=== PATIENT | male | born 1980 | race Caucasian/White ===

== ENCOUNTER 2024-04-11 07:56 | Outpatient (AMB) | payer OTHER, SELFPAY ==
[2024-04-11 07:58] VITALS: BP 128/82; PULSE 92; O2SAT 97; BMI 31.3
--- NOTE | 2024-04-11 07:58 | MHC.PC.OV ---
Vital Signs 04/11/24 07:58 Height 5 ft 7 in Weight 200 lb BMI 31.3 BP 128/82 Blood Pressure Location Lt brachial Position Sitting Pulse 92 Pulse Source Pulse Oximeter Pulse Oximetry (%) 97 Oxygen Delivery Method Room Air Intake Visit Reasons: Annual PE Allergies No Known Allergies Allergy (Verified 04/11/24 08:04) Medication List - Last Reconciled 04/11/24 by Asher Chacon PA-C alprazolam 0.5 mg PO DAILY PRN 2 days blood pressure test kit-large As directed bupropion HCl XL (Wellbutrin XL) 300 mg PO QAM 90 days clonidine HCl 0.1 mg PO BID ibuprofen 800 mg PO Q8H 90 days omeprazole 20 mg PO DAILY valacyclovir (Valtrex) 1,000 mg PO DAILY 30 days Tobacco use date assessed: 04/11/24 Dental Screening Dental Screen Date: 04/11/24 Did you have a dental visit in the last 12 months?: Yes Did you have a dental problem in the last 6 months where you did not have access to dental care?: No Was dental information given to patient?: Patient has dentist HPI Annual PE HPI Details Patient is a 43-year-old male here today for routine annual physical. Patient has a past medical history significant for generalized anxiety disorder, obesity,, GERD. .. Anxiety: Anxiety seems to be well controlled on current med regime. Anxiety was bad during COVID pandemic. .. .. Hyperlipidemia: Patient's most recent lipid panel showing elevated total cholesterol. Recheck lipid panel if LDL above 190 will consider statin therapy .. .. Obesity:? Patient does understand his BMI is over 30 and will work on better eating habits and being more physically active to reduce his weight VAccine: UTD with Maderna Vaccine?, up-to-date with tetanus. , UTD with Flu vaccine. [facility] Medical History (Updated 04/11/24 @ 08:24 by Asher Chacon PA-C) Herpes simplex Overweight GERD (gastroesophageal reflux disease) Family History (Updated 04/11/24 @ 08:09 by Asher Chacon PA-C) Father COPD (chronic obstructive pulmonary disease) HTN (hypertension) Mother Cancer Diabetes Breast cancer, Onset Age: 51 Social History (Updated 04/11/24 @ 08:09 by Asher Chacon PA-C) Housing: House Alcohol intake: current Alcohol intake frequency: a few times a month Alcohol type: beer Patient Tobacco Use Status: Never used Tobacco Tobacco use type: Cigarette e-Cigarette/Vaping Use: Never Used Second Hand Smoke Exposure: No Substance Use Type: Marijuana Current occupational status: employed Current occupation: [employer] Cognitive needs: No Hearing needs: No Vision needs: Yes Questionnaire PHQ-9 Over the last 2 weeks, how often have you been bothered by any of the following problems? 1. Little interest or pleasure in doing things: not at all 2. Feeling down, depressed, or hopeless: several days 3. Trouble falling or staying asleep, or sleeping too much: not at all 4. Feeling tired or having little energy: not at all 5. Poor appetite or overeating: several days 6. Feeling bad about yourself - or that you are a failure or have let yourself or your family down: not at all 7. Trouble concentrating on things, such as reading the newspaper or watching television: not at all 8. Moving or speaking so slowly that other people could have noticed. Or the opposite - being so fidgety or restless that you have been moving around a lot more than usual: not at all 9. Thoughts that you would be better off or of hurting yourself in some way: not at all Total score: 2 Depression Screening Interpretation: Positive Depression Screening Follow-up: Existing condition Depression Screening Done: Yes 15795 - PHQ-9 Billing: Yes Source: Developed by Drs. Elgin Orlando, Binta Peng, Moise Bustamante and colleagues, with an educational luigi from [employer]. Thrive Questionnaire Date Thrive assessed: 04/09/24 I am a: Patient What is your living situation today?: I have a steady place to live Within the past 12 months, did the food you bought not last and you didn't have the money to get more?: Never true Within the past 12 months, did you worry whether your food would run out before you got money to buy more?: Never true Do you have trouble paying for medicines?: No Do you have trouble getting transportation to medical appointments?: No Do you have trouble paying your heating and electricity bill?: No Do you have trouble taking care of your child, family member or friend?: No Do you have trouble with day-to-day activities such as bathing, preparing meals, shopping, managing finances, etc.?: No Are you currently unemployed and looking for a job?: No Are you interested in more education?: No Please select the resources that you would like help with: None Currently or been in a relationship where the following occur: No concerns reported THRIVE Score: 0 AUDIT C Alcohol Use Questionnaire (AUDIT-C) 1. How often do you have a drink containing alcohol?: 2-3 times a week 2. How many drinks containing alcohol do you have on a typical day when you are drinking?: 3 or 4 3. How often do you have six or more drinks on one occasion?: Less than monthly Total Score: 5 TING-7 AMB Questionnaire TING-7 Date TING - 7 assessed: 04/11/24 Feeling nervous, anxious, or on edge: 1 = Several days Not being able to stop or control worryin = Several days Worrying too much about different things: 1 = Several days Trouble relaxin = Several days Being so restless that it is hard to sit still: 1 = Several days Becoming easily annoyed or irritable: 1 = Several days Feeling afraid as if something awful might happen: 1 = Several days Total TING-7 score (0-4 normal; 5-9 mild; 10-14 moderate; 15-21 severe): 7 Source: Developed by Drs. Elgin Orlando, Binta Peng, Moise Bustamante and colleagues, with an educational luigi from [employer]. TING-7 Assessment Billing TING-7 Assessment Tool: TING-7 Assessment 27088 Review of Systems Const Denies body aches, Denies chills, Denies excessive sweating, Denies fatigue, Denies fever(s) and Denies headache(s) Eyes Denies blurry vision ENT Denies dysphagia, Denies vertigo, Denies dizziness, Denies headache(s), Denies hearing loss and Denies tinnitus Card Denies chest pain, Denies chest pain with activity, Denies syncope, Denies irregular heart rhythm and Denies dyspnea Resp Denies chest congestion, Denies cough, Denies hemoptysis, Denies dyspnea and Denies wheezing GI Denies abdominal pain, Denies melena, Denies hematochezia, Denies coffee ground emesis, Denies dysphagia, Denies diarrhea, Denies nausea and Denies vomiting Denies difficulty urinating, Denies dysuria, Denies urinary frequency, Denies urinary hesitancy and Denies urinary urgency Musc Denies arthralgias, Denies limited range of motion, Denies muscle cramps and Denies muscle weakness Skin/Breast Denies rash and Denies skin ulcer Neuro Denies Abnormal speech present, Denies confusion, Denies vertigo, Denies dizziness, Denies syncope, Denies headache(s), Denies memory loss and Denies seizure-like activity Psych Denies anxiety, Denies confusion, Denies depression, Denies memory loss, Denies panic attacks and Denies paranoia Endo Denies excessive sweating, Denies fatigue, Denies flushing, Denies polydipsia and Denies polyuria Aller/Immun Denies wheezing Physical exam (Primary Care) Vital Signs: Last Vital Signs Pulse 92 04/11/24 07:58 BP 128/82 04/11/24 07:58 Pulse Ox 97 04/11/24 07:58 Oxygen Delivery Method Room Air 04/11/24 07:58 BMI result Body Mass Index 31.3 Tobacco/Smoking Status: Tobacco use Status Tobacco use date assessed 04/11/24 04/11/24 08:02 Patient Tobacco Use Status Never used Tobacco 04/11/24 08:09 Tobacco use type Cigarette 04/11/24 08:09 e-Cigarette/Vaping Use Never Used 04/11/24 08:09 PHQ-9: PHQ-9 Score PHQ-9: Total score 2 04/11/24 08:23 Depression Screening Interpretation: Positive Depression Screening Follow-up: Existing condition Thrive Assessment: Date of Thrive Assessment Date Thrive assessed 04/09/24 04/11/24 08:02 Currently or been in a relationship where the following occur: No concerns reported Const General: cooperative, comfortable, no acute distress, alert and awake; No confusion Orientation/consciousness: oriented to person, oriented to place, patient oriented x3 and No confusion HENMT Head: Yes normocephalic Ears: external ears normal and TM's normal bilaterally Face and sinus: No sinus tenderness Mouth: Normal oral and palatal mucosa present and tongue normal Teeth and gingiva: dentition normal and gingiva normal Throat: Yes posterior oropharynx normal, Yes tonsils normal and Yes uvula midline Eyes Conjunctivae: conjunctivae normal Sclerae: sclerae normal Pupils: Equal, round and reactive pupils present EOM: EOMs intact bilaterally Direct Ophthalmoscopy: No no photophobia Neck Neck: Yes no lymphadenopathy, No tender and Yes no JVD Thyroid: Thyroid normal Carotids: no bruits Chest Chest palpation & inspection: no tenderness Resp Effort & Inspection: normal respiratory effort, no audible wheezes, not labored and no stridor Auscultation: no crackles, no rales, no rhonchi and no wheezes Cardio Jugular venous distension: no JVD Rate: regular rate, not bradycardic and not tachycardic Rhythm: regular rhythm Bruits: no carotid bruits Peripheral pulses: Peripheral pulses 2+ throughout GI Inspection: Yes normal to inspection, No abdominal wall ecchymosis and No visible herniation Palpation (GI): Soft to palpation, nontender, no guarding, not rigid and No hepatosplenomegaly present Auscultation: normoactive bowel sounds General: Yes no CVA tenderness Back/Spine/Pelvis Back: no CVA tenderness and No back tenderness Cervical Spine: cervical ROM normal Thoracic/Lumbar Spine: thoracic and lumbar spine normal to inspection, straight leg raise negative bilaterally, No thoraco-lumbar ROM limited and No lumbar spinal tenderness Skin Lesions: no lesions Rashes: no rashes Wounds: no wounds Neuro General: oriented to person, oriented to place, patient oriented x3, CN's II-XI intact bilaterally and No confusion Cranial nerves: Yes Equal, round and reactive pupils present and Yes Normal accommodation reflex present Cognition (Neuro): normal cognition Speech: No Abnormal speech present Gait exam (Neuro): Normal gait present Motor exam (neuro): 5/5 motor strength present throughout Extrem Right upper extremity: full ROM; no cyanosis Left upper extremity: full ROM; no cyanosis Right lower extremity: no edema Left lower extremity: no edema Psych Appearance: grossly normal Mental Status: mental status grossly normal Affect: normal affect Attitude: cooperative Thought process: Normal thought process present Immunizations Boostrix Tdap 2.5 Lf unit-8 mcg-5 Lf/0.5 mL intramuscular syringe Performing Provider: Asher Chacon PA-C Performing Location: [facility] Administered by: KURT Dennis on 04/11/24 08:23 Dose Route Admin Location Dispensed Lot Number Expiration Date NDC Technical Support Representative 0.5 mL IM Left Deltoid 0.5 mL [id number] 04/23/26 [id number] [place] VIS Given Date VIS Provided VIS Publication Date 04/11/24 Single Vaccine 21 Eligibility Eligibility Date Funding Source Not VFC Eligible 04/11/24 Private Assessment and Plan Assessment & Plan (1) Annual physical exam: Code(s): Z00.00 - Encounter for general adult medical examination without abnormal findings (2) TING (generalized anxiety disorder): Code(s): F41.1 - Generalized anxiety disorder Plan: Patient's TING-7 score positive for mild anxiety which has been existing condition for him. He continues on Wellbutrin with good effect. His anxiety has been much better since COVID pandemic has calm down. (3) Obese: Code(s): E66.9 - Obesity, unspecified Qualifiers: Body mass index: BMI 32.0-32.9 Obesity classification: adult class 1 (BMI 30 - 34.9) Obesity type: due to excess calories Serious obesity comorbidity presence: without serious comorbidity Qualified Code(s): E66.09 - Other obesity due to excess calories; Z68.32 - Body mass index [BMI] 32.0-32.9, adult Plan: Patient does understand his BMI is over 30 and has been working on better eating habits and being more physically active to reduce his weight. (4) Screening for diabetes mellitus (DM): Code(s): Z13.1 - Encounter for screening for diabetes mellitus (5) HTN (hypertension): Code(s): I10 - Essential (primary) hypertension Qualifiers: Hypertension type: primary hypertension Qualified Code(s): I10 - Essential (primary) hypertension Plan: Blood pressure acceptable today in office. Likely a white coat hypertension due to his anxiety. Blood pressure today acceptable. He will continue on lifestyle modifications to control his blood pressure. Goal blood pressures to be below 140/90 (6) HLD (hyperlipidemia): Code(s): E78.5 - Hyperlipidemia, unspecified Qualifiers: Hyperlipidemia type: mixed hyperlipidemia Qualified Code(s): E78.2 - Mixed hyperlipidemia Plan: Most recent lipid panel showing elevated total cholesterol. Will recheck fasting labs in if LDL above 190 will consider statin therapy. Orders: Orders Comprehensive [place]. Panel Fast 04/11/24 I10 - Essential (primary) hypertension Complete Blood Count no Diff 04/11/24 I10 - Essential (primary) hypertension Lipid Panel 04/11/24 E78.2 - Mixed hyperlipidemia TDaP Immunization 04/11/24 Z23 - Encounter for immunization Microalbumin, Random (w Creat) 04/11/24 I10 - Essential (primary) hypertension Patient Instructions: Goal: Blood pressure to remain below 140/90, LDL to be below 190 Barriers:: Adherence to physical activity and healthy eating habits Coding Level of Care Code Est Pt Prev Care 40-64y(09412) Diagnoses Annual physical exam Z00.00 TING (generalized anxiety disorder) F41.1 Class 1 obesity due to excess calories without serious comorbidity with body mass index (BMI) of 32.0 to 32.9 in adult E66.09; Z68.32 Body mass index: BMI 32.0-32.9 Obesity classification: adult class 1 (BMI 30 - 34.9) Obesity type: due to excess calories Serious obesity comorbidity presence: without serious comorbidity Screening for diabetes mellitus (DM) Z13.1 Primary hypertension I10 Hypertension type: primary hypertension Mixed hyperlipidemia E78.2 Hyperlipidemia type: mixed hyperlipidemia Additional Codes TING-7 Assessment Billing - TING-7 Assessment Tool: TING-7 Assessment 17317 ([id number])
== END 2024-04-11 08:20 | disposition home or self-care (01) ==
PROVIDERS: PCP Physician Assistant; Visit Provider Physician Assistant
DX: Z23 Encounter for immunization (principal)
CPT/HCPCS: 90471; 90715; 99396

== ENCOUNTER 2024-05-22 21:38 | Emergency (ER) | payer OTHER, SELFPAY ==
--- NOTE | ~2024-05-22 | XR_ITS ---
EXAMINATION: XR CHEST, 2 VIEWS CLINICAL INFORMATION: Persistent cough COMPARISON: None. TECHNIQUE: PA and lateral views of the chest were obtained. FINDINGS: Patchy airspace opacities are suspected at the right lung base just posterior to the right hemidiaphragm, best seen on lateral view. Mild elevation of the right hemidiaphragm. Left lung is clear. Cardiac and mediastinal contours are normal. Pulmonary vasculature is unremarkable. Trachea is midline. Osseous structures are unremarkable. XR/XR chest 2V IMPRESSION: Right basilar airspace opacities which are concerning for pneumonia. Platelike atelectasis is also possible. Electronically signed by: Chandler Zamorano MD 05/22/2024 11:46 PM EDT
[2024-05-22 21:52] VITALS: BP 152/99; PULSE 128; RESP 20; TEMP 37.8; O2SAT 95; BMI 30.5
[2024-05-22] MEDS: Acetaminophen 325 MG TABLET 975 MG PO (22:04)
[2024-05-22 22:36] LABS: IDNOW Serial# 6674DD1D; Strep A Nucleic Acid Negative (Negative)
[2024-05-22 22:52] LABS: Influenza A PCR NEGATIVE (Negative); Influenza B PCR NEGATIVE (Negative); Resp Syncy Virus RNA Qual PCR NEGATIVE (Negative); SARS COV2 PCR INHOUSE NEGATIVE (Negative)
--- NOTE | 2024-05-23 02:42 | ED_ITS ---
HPI - URI/Sore Throat General Chief Complaint: Upper Respiratory Symptoms Stated Complaint: fever x5 days Time Seen by Provider: 05/23/24 02:27 Source: patient Mode of arrival: ambulatory Limitations: no limitations History of Present Illness ED Provider: cas ZAVALA Narrative: Patient was healthy been congested for last 4 days with cough fever cough is mostly dry specially when he takes a deep breath had a T-max of 103 degrees no other family member sick Related Data Home Medications ?Medication ?Instructions ?Recorded ?Confirmed clonidine HCl 0.1 mg tablet 0.1 mg PO BID 08/26/20 04/11/24 omeprazole 20 mg capsule,delayed 20 mg PO DAILY 08/26/20 04/11/24 release Previous Rx's ?Medication ?Instructions ?Recorded blood pressure test kit-large #1 ea 10/09/21 bupropion HCl 300 mg 24 hr tablet, 300 mg PO QAM 90 days #90 tabs 04/07/23 extended release (Wellbutrin XL) alprazolam 0.5 mg tablet 0.5 mg PO DAILY PRN anxiety 2 days 02/10/24 #2 tabs ibuprofen 800 mg tablet 800 mg PO Q8H 90 days #270 tabs 02/10/24 valacyclovir 1 gram tablet 1,000 mg PO DAILY 30 days #30 tabs 05/01/24 (Valtrex) albuterol sulfate 90 mcg/actuation 2 puff inhalation Q6H PRN 05/23/24 aerosol inhaler shortness of breath or wheezing #8.5 grams benzonatate 200 mg capsule 200 mg PO TID PRN cough #30 caps 05/23/24 cefuroxime axetil 500 mg tablet 500 mg PO BID 7 days #14 tabs 05/23/24 Allergies Allergy/AdvReac Type Severity Reaction Status Date / Time No Known Allergies Allergy Verified 05/22/24 21:55 Review of Systems Review of Systems: Yes all other systems are reviewed and are negative PMF Past Medical History Medical History Herpes simplex Overweight GERD (gastroesophageal reflux disease) Family History Family History Father COPD (chronic obstructive pulmonary disease) HTN (hypertension) Mother Cancer Diabetes Breast cancer, Onset Age: 51 Social History Social History Housing: House Alcohol intake: current Alcohol intake frequency: a few times a month Alcohol type: beer Patient Tobacco Use Status: Never used Tobacco Tobacco use type: Cigarette e-Cigarette/Vaping Use: Never Used Second Hand Smoke Exposure: No Substance Use Type: Marijuana Advance Directives: No Advance Directives Information Provided: Yes Do you have a plan to hurt others: No Plan Current occupational status: employed Current occupation: [employer] Cognitive needs: No Hearing needs: No Vision needs: Yes Physical Exam Vital Signs: Vital Signs: Last Vital Signs Temp 99.2 F 05/23/24 04:38 Pulse 100 05/23/24 04:38 Resp 18 05/23/24 04:38 BP 134/81 05/23/24 04:38 Pulse Ox 97 05/23/24 04:38 O2 Del Method Room Air 05/23/24 04:38 BMI result Body Mass Index 30.5 Appearance: Alert. Oriented X3. No acute distress. ENT: Pharynx normal. Oral Mucosa moist Neck: Normal inspection. Neck supple. CVS: Normal heart rate and rhythm. Pulses normal. Respiratory: No respiratory distress. Equal air entry bilateral, prolonged expiration with frequent cough Abdomen: Soft and nontender. Bowel sounds are present, no mass palpable, no CVA tenderness Skin: Skin warm and dry. Normal skin color. Normal skin turgor. Extremities: No lower extremity edema. No calf tenderness Neuro: Oriented X 3. Medications Administered Discontinued Medications Generic Name Dose Route Start Last Admin Trade Name Freq PRN Reason Stop Dose Admin Acetaminophen 975 mg 05/22/24 22:01 05/22/24 22:04 Acetaminophen 325 Mg Tablet PO 05/22/24 22:02 975 mg ONCE ONE Administration Albuterol Sulfate 2 puff 05/23/24 02:49 05/23/24 03:46 Albuterol Sulfate 90 Mcg 8 Gm Inhaler INHALE 05/23/24 02:50 2 puff ONCE ONE Administration Cefuroxime Axetil 500 mg 05/23/24 02:47 05/23/24 03:04 Cefuroxime Axetil 500 Mg Tablet PO 05/23/24 02:48 500 mg ONCE ONE Administration Guaifenesin/Codeine Phosphate 10 ml 05/23/24 02:48 05/23/24 03:04 Guaifen/Codeine Sf 200/20/10ml 10 Ml Liquid PO 05/23/24 02:49 10 ml ONCE ONE Administration Medical Decision Making Medical Decision Making [facility] Narrative: Patient has acute bronchitis will prescribe cefuroxime and inhaler Differential Diagnosis Differential Diagnoses: The differential diagnosis associated with the presentation includes Lab Data [facility] Lab Attestation statement: I reviewed the patient's lab results. Labs: Lab Results 05/22/24 05/22/24 Range/Units 22:10 22:20 Influenza Type A (PCR) NEGATIVE (Negative) Influenza Type B (PCR) NEGATIVE (Negative) RSV RNA Qual (PCR) NEGATIVE (Negative) SARS-CoV-2 RNA (RT-PCR) NEGATIVE (Negative) S. pyogenes GrpA ROBBIN Negative (Negative) Independent Interpretation I performed an independent interpretation of an: Plain X-Ray Radiology Impression Discussion of test interpretation with radiology: I have reviewed the radiologist's reading. Radiologist Impression: [place] [id number] XRay Report Signed Patient: Rolan Chakraborty MR#: [id number] : 1980 Acct:[id number] Age/Sex: 43 / M ADM Date: 05/22/24 Loc: .ED Attending Dr: Ordering Physician: Generic ED Physician Date of Service: 05/22/24 Procedure(s): XR chest 2V Accession Number(s): [id number] cc: Asher Chacon PA-C; Generic ED Physician~ EXAMINATION: XR CHEST, 2 VIEWS CLINICAL INFORMATION: Persistent cough COMPARISON: None. TECHNIQUE: PA and lateral views of the chest were obtained. FINDINGS: Patchy airspace opacities are suspected at the right lung base just posterior to the right hemidiaphragm, best seen on lateral view. Mild elevation of the right hemidiaphragm. Left lung is clear. Cardiac and mediastinal contours are normal. Pulmonary vasculature is unremarkable. Trachea is midline. Osseous structures are unremarkable. XR/XR chest 2V IMPRESSION: Right basilar airspace opacities which are concerning for pneumonia. Platelike atelectasis is also possible. Electronically signed by: Chandler Zamorano MD 05/22/2024 11:46 PM EDT Discharge Plan Discharge Clinical Impression: Bronchitis Patient Disposition: Home, Self-Care Instructions: Acute Bronchitis (ED) Additional Instructions: Take antibiotic as prescribed Use albuterol inhaler 2 puffs every 4-6 hours as needed Antibiotic and cough drops as prescribed Prescriptions: New benzonatate 200 mg capsule 200 mg PO TID PRN (Reason: cough) Qty: 30 0RF cefuroxime axetil 500 mg tablet 500 mg PO BID 7 Days Qty: 14 0RF albuterol sulfate 90 mcg/actuation HFA aerosol inhaler 2 puff inhalation Q6H PRN (Reason: shortness of breath or wheezing) Qty: 8.5 0RF No Action bupropion HCl [Wellbutrin XL] 300 mg tablet extended release 24 hr 300 mg PO QAM 90 Days Qty: 90 2RF ibuprofen 800 mg tablet 800 mg PO Q8H 90 Days Qty: 270 0RF alprazolam 0.5 mg tablet 0.5 mg PO DAILY PRN (Reason: anxiety) 2 Days Qty: 2 0RF valacyclovir [Valtrex] 1 gram tablet 1,000 mg PO DAILY 30 Days Qty: 30 1RF omeprazole 20 mg capsule,delayed release(DR/EC) 20 mg PO DAILY clonidine HCl 0.1 mg tablet 0.1 mg PO BID (DME) blood pressure test kit-large Kit See Rx Instructions .Route Qty: 1 0RF Rx Instructions: As directed Stand Alone Forms: Work/School Release Interventions: ED Discharge Assessment Last Done: 05/23/24 04:38 Discharge Date/Time: 05/23/24 04:38 Print Language: Guamanian
[2024-05-23] MEDS: guaiFEN/Codeine SF 200/20/10ML 10 ML LIQUID PO (03:04)
[2024-05-23] MEDS: cefuroxime axetiL 500 MG TABLET PO (03:04)
[2024-05-23] MEDS: Albuterol Sulfate 90 MCG 8 GM INHALER 2 PUFF INHALE (03:46)
[2024-05-23 04:29] VITALS: BP 134/81; PULSE 100; RESP 18; TEMP 37.3; O2SAT 97
[2024-05-23 04:38] VITALS: BP 134/81; PULSE 100; RESP 18; TEMP 37.3; O2SAT 97
== END 2024-05-23 04:38 | disposition home or self-care (01) ==
PROVIDERS: Emergency Provider Internal Medicine; PCP Physician Assistant
DX: J40 Bronchitis, not specified as acute or chronic (principal); R50.9 Fever, unspecified; R05.9 Cough, unspecified; Z03.818 Encounter for observation for suspected exposure to other biological agents ruled out; Z79.899 Other long term (current) drug therapy
CPT/HCPCS: 0241U; 71046; 87651; 99284

== ENCOUNTER 2025-06-05 18:00 | Inpatient (IN) | payer OTHER, SELFPAY ==
--- NOTE | ~2025-06-05 | US_ITS ---
CLINICAL HISTORY: rlq tenderness Exam: Limited ultrasound of the abdominal right lower quadrant. Comparison: None. Findings: The appendix is not identified, therefore appendicitis is neither confirmed nor excluded. No free fluid or definable adenopathy. Peristalsing bowel loops are present within right lower quadrant. Impression: 1. The appendix is not identified, therefore appendicitis is neither confirmed nor excluded. This document has been electronically signed by: Fly Zee MD on 06/05/2025 19:21:01
--- NOTE | ~2025-06-05 | CT_ITS ---
CLINICAL HISTORY: RLQ pain CT abdomen and pelvis with contrast Comparison: None provided Findings: Small hiatal hernia. Minimal atelectasis. Hepatomegaly with steatosis. Splenomegaly. No urolithiasis. Submucosal fatty deposition in the terminal ileum can be seen with chronic ileitis. No bowel obstruction. Dilated appendix with appendicoliths and diffuse periappendiceal fluid stranding. No periappendiceal fluid collections or evidence of perforation. Scattered colonic diverticulosis without diverticulitis or colitis. Decompressed bladder. No acute fracture. IMPRESSION: Findings consistent with non perforated appendicitis. This document has been electronically signed by: Patrick Talley MD on 06/05/2025 22:41:43
--- NOTE | 2025-06-05 18:12 | ED.GENADULT ---
HPI - General Adult General Chief complaint: Abdominal Pain Stated complaint: pain lwr right side Time Seen by Provider: 06/05/25 21:10 Source: patient Mode of arrival: ambulatory Limitations: no limitations History of Present Illness ED Provider: Dr. Ora Edward HPI narrative: 44-year-old male with no significant past medical history presenting with right lower quadrant abdominal pain that began this morning. Patient describes a periumbilical pain that eventually radiated to his right lower quadrant at became more severe throughout the day. Describes pain with any movement whatsoever including walking and sitting. Describes poor appetite but otherwise denies nausea, vomiting, diarrhea, hematochezia or melena, dysuria or hematuria, testicular pain or swelling. Admits to a temperature of 99.9? at home. He has never had abdominal surgery. No recent antibiotic use. Has been feeling well before this. Related Data Home Medications ?Medication ?Instructions ?Recorded ?Confirmed clonidine HCl 0.1 mg tablet 0.1 mg PO BID 08/26/20 04/11/24 omeprazole 20 mg capsule,delayed 20 mg PO DAILY 08/26/20 04/11/24 release Previous Rx's ?Medication ?Instructions ?Recorded blood pressure test kit-large #1 ea 10/09/21 valacyclovir 1 gram tablet 1,000 mg PO DAILY 30 days #30 tabs 05/01/24 (Valtrex) albuterol sulfate 90 mcg/actuation 2 puff inhalation Q6H PRN 05/23/24 aerosol inhaler shortness of breath or wheezing #8.5 grams benzonatate 200 mg capsule 200 mg PO TID PRN cough #30 caps 05/23/24 cefuroxime axetil 500 mg tablet 500 mg PO BID 7 days #14 tabs 05/23/24 bupropion HCl 300 mg 24 hr tablet, 300 mg PO QAM 90 days #90 tabs 08/07/24 extended release (Wellbutrin XL) alprazolam 0.5 mg tablet 0.5 mg PO DAILY PRN anxiety 2 days 02/06/25 #2 tabs ibuprofen 800 mg tablet 800 mg PO Q8H 90 days #270 tabs 03/09/25 Allergies Allergy/AdvReac Type Severity Reaction Status Date / Time No Known Allergies Allergy Verified 06/05/25 18:14 Review of Systems Review of Systems: As per HPI, full review of systems performed and negative but for the above mentioned pertinent positives and negatives. [facility] Past Medical History Medical History Herpes simplex Overweight GERD (gastroesophageal reflux disease) Family History Family History Father COPD (chronic obstructive pulmonary disease) HTN (hypertension) Mother Cancer Diabetes Breast cancer, Onset Age: 51 Social History Social History Housing: House Alcohol intake: current Alcohol intake frequency: a few times a month Alcohol type: beer Patient Tobacco Use Status: Never used Tobacco Tobacco use type: Cigarette e-Cigarette/Vaping Use: Never Used Second Hand Smoke Exposure: No Substance Use Type: Marijuana Advance Directives: No Advance Directives Information Provided: No Do you have a plan to hurt others: No Plan Current occupational status: employed Current occupation: [employer] Cognitive needs: No Hearing needs: No Vision needs: Yes Physical Exam ED Exam Exam: GENERAL: Ill-Appearing, appears uncomfortable. SKIN: Normal skin color for ethnicity, warm, dry, no rashes noted. HEENT: Normocephalic, atraumatic, no stridor, dry mucous membranes, dentition intact, EOMI, PERRLA. NECK: Soft, supple, full ROM, midline structures nontender, no step-offs, no deformities, no lymphadenopathy. CHEST: Heart regular tachycardia, no murmurs, symmetric chest rise and fall. PULMONARY: Clear to auscultation bilaterally, diminished at the bases, no labored breathing, no wheezes/rhales/rhonchi. ABDOMINAL: Soft, nondistended, right lower quadrant tenderness to palpation with voluntary guarding, quiet bowel sounds in all quadrants. : Deferred. MUSCULOSKELETAL: Normal tone, full range of motion, no deformities, no peripheral edema. NEURO: Alert and oriented x3, CN II through XII intact, equal strength and sensation bilateral upper and lower extremities, no focal neurologic deficits. PSYCHIATRIC: Flat affect, fluid speech, good eye contact and appropriate demeanor. Vital Signs: Vital Signs - 24 hr 06/05/25 18:13 06/05/25 21:21 06/05/25 22:02 Temperature 98.1 F 99.9 F 99.5 F Pulse Rate 108 H 100 102 H Respiratory Rate 20 18 20 Blood Pressure 150/95 H 148/69 H 146/103 H Pulse Oximetry 97 99 96 Oxygen Delivery Method Room Air Room Air Room Air BMI result Body Mass Index 32.6 Course Course Course Narrative: This is a rapid medical exam performed by Kong Daniel NP: Additional HPI, ROS, PE not included below will be deferred to primary provider. Patient is a 44y/o M presenting with c/o RLQ pain since this am, has worsened throughout the day. Little bit of diarrhea, no nausea or vomiting. Worse with ambulation. Plan: labs, UA, U/S Medications Administered Discontinued Medications Generic Name Dose Route Start Last Admin Trade Name Freq PRN Reason Stop Dose Admin Lactated Ringer's 1,000 mls @ 999 mls/hr 06/05/25 21:21 06/05/25 21:35 Lr IV 06/05/25 22:21 999 mls/hr .Q1H1M ONE Administration Acetaminophen 1,000 mg in 100 mls @ 400 mls/hr 06/05/25 21:21 06/05/25 22:20 Ofirmev IV 06/05/25 21:35 Infused ONCE ONE Infusion Iohexol 85 ml 06/05/25 21:47 06/05/25 21:48 Iohexol 350 Mg/Ml 100 Ml Infus..Btl IV 06/05/25 21:48 85 ml ONCE ONE Administration Medical Decision Making Medical Decision Making [facility] Narrative: This patient presents today with a chief complaint of abdominal pain. Differential diagnosis for this patient is broad. It includes appendicitis, cholecystitis, bowel obstruction, peptic ulcer disease, pyelonephritis, vascular pathology, among many others. A broad-based workup based on history and physical examination was obtained. Patient given Tylenol for his pain and low-grade fever. Ultrasound ordered from triage was negative however the appendix was not visualized. CT shows evidence of appendicitis with an appendicolith. Patient is not currently septic though meeting SIRS criteria with his heart rate. Plan for admission to general surgery for appendicitis. Patient understands and agrees with the plan. Admitted in guarded condition. Differential Diagnosis Differential Diagnoses: The differential diagnosis associated with the presentation includes (As above) Admission/Observation Consideration of admission/observation: Escalation of care including admission/observation considered Consult Healthcare Provider Management of the patient was discussed with: Edi Programmer (General surgery) Lab Data [facility] Lab Attestation statement: I reviewed the patient's lab results. 06/05/25 19:03 06/05/25 19:03 Labs: Lab Results 06/05/25 06/05/25 06/05/25 Range/Units 19:03 21:25 21:35 WBC 12.7 H (4.8-10.8) X10*3/uL RBC 5.04 (4.60-5.80) X10*6/uL Hgb 16.0 (14.0-18.0) g/dl Hct 43.1 (42.0-52.0) % MCV 85.5 (80.0-98.0) fL MCH 31.7 (27.0-33.0) pg MCHC 37.1 H (31.0-36.0) g/dl RDW 12.9 (11.0-16.0) % Plt Count 221 (160-400) X10*3/uL MPV 10.4 (9.4-12.4) fL Immature Gran % (Auto) 0.2 (0.0-0.4) % Neut % (Auto) 75.7 H (45-73) % Lymph % (Auto) 17.2 L (20-40) % [place] % (Auto) 5.3 (2-11) % Eos % (Auto) 1.2 (0-4) % Baso % (Auto) 0.4 (0-2) % Lymph # (Auto) 2.2 (1.2-4.9) X10*3/uL [place] # (Auto) 0.7 (0.1-1.2) X10*3/uL Eos # (Auto) 0.2 (0.0-0.4) X10*3/uL Baso # (Auto) 0.1 (0.0-0.2) X10*3/uL Abs Immat Gran (auto) 0.03 (0.00-0.03) X10*3/uL Absolute Neuts (auto) 9.6 H (2.0-8.3) x10*3/uL Absolute Nucleated RBC 0.000 (0.0-0.012) X10*3/uL Nucleated RBC % (auto) 0.0 (0.0-0.2) /100WBC Sodium 139 (135-145) mmol/L Potassium 4.0 (3.3-5.1) mmol/L Chloride 104 (96-108) mmol/L Carbon Dioxide 27 (22-29) mmol/L Anion Gap 12 (12-20) BUN 11 (9-16) mg/dL Creatinine 1.13 (0.5-1.4) mg/dL Estim Creat Clear Calc 93.3 Estimated GFR > 60 Random Glucose 102 (60-115) mg/dL Lactic Acid 1.1 (0.5-2.0) mmol/L Calcium 9.4 (8.4-10.2) mg/dL Total Bilirubin 1.1 H (0.0-1.0) mg/dL AST 28 (5-37) U/L ALT 44 H (0-40) U/L Alkaline Phosphatase 85 (39-117) U/L Total Protein 7.2 (6.5-8.0) g/dL Albumin 4.8 (3.5-5.0) g/dL Urine Color Yellow Urine Appearance Clear Urine pH 8.5 (5.0-9.0) Ur Specific [place] 1.020 (1.005-1.025) Urine Protein Negative (Neg-Trace) mg/dL Urine Glucose (UA) Negative (Negative) mg/dL Urine Ketones Trace (Negative) mg/dL Urine Blood Negative (Negative) Urine Nitrite Negative (Negative) Ur Leukocyte Esterase Negative (Negative) Independent Interpretation I performed an independent interpretation of an: CT Scan Interpretation: Appendicolith at the junction with periappendiceal stranding Radiology Impression Discussion of test interpretation with radiology: I have reviewed the radiologist's reading. External Record Review External record reviewed: Inpatient record Discharge Plan Discharge Clinical Impression: Acute appendicitis with localized peritonitis without abscess Patient Disposition: Admitted As Inpatient Print Language: Congolese
[2025-06-05 18:13] VITALS: BP 150/95; PULSE 108; RESP 20; TEMP 36.7; O2SAT 97; BMI 32.6
[2025-06-05 19:07] LABS: MANUAL DIFF FLAG NO
[2025-06-05 19:09] LABS: Hematocrit 43.1 % (42.0-52.0); Hemoglobin 16.0 g/dl (14.0-18.0); Imm Gran Abs Auto 0.03 X10*3/uL (0.00-0.03); Imm Gran Pct Auto 0.2 % (0.0-0.4); Lymphocytes Absolute Auto 2.2 X10*3/uL (1.2-4.9); Mean Corpuscular HGB Conc 37.1 g/dl (31.0-36.0); Mean Corpuscular Hemoglobin 31.7 pg (27.0-33.0); Mean Corpuscular Volume 85.5 fL (80.0-98.0); NRBC Abs Auto 0.000 X10*3/uL (0.0-0.012); NRBC Pct Auto 0.0 /100WBC (0.0-0.2); Platelet Count 221 X10*3/uL (160-400); Red Blood Count 5.04 X10*6/uL (4.60-5.80); White Blood Count 12.7 X10*3/uL (4.8-10.8)
[2025-06-05 19:22] LABS: Alanine Aminotransferase 44 U/L (0-40); Albumin Level 4.8 g/dL (3.5-5.0); Alkaline Phosphatase 85 U/L (39-117); Anion Gap 12 (12-20); Aspartate Amino Transferase 28 U/L (5-37); Blood Urea Nitrogen 11 mg/dL (9-16); Calcium 9.4 mg/dL (8.4-10.2); Carbon Dioxide 27 mmol/L (22-29); Chloride 104 mmol/L (96-108); Creatinine Clr Calc Pharmacy 93.3; Estimated Glomerular Filt Rate > 60; Potassium 4.0 mmol/L (3.3-5.1); Sodium 139 mmol/L (135-145); Total Protein 7.2 g/dL (6.5-8.0)
--- OUTSIDE RECORDS SUMMARY | 2025-06-05 21:16 | XMS_ITS | Patient Health Record ---
Author Organization [facility] Address [address] [place] [address] Care Team Providers Care Sharepoint Consultant Name Role Phone Rebeca (RETIRED) Chidi MARTINEZ Primary Care Provide r Unavailable Elgin Jimenez Unavailable [phone] Reason For Referral No Information Medications Medication SIG (Take, Route, Frequency, Duration) Notes Start Date End Date Status Multivitamin Adult - Orally Active ibuprofen prn Active Omeprazole since 2013 Active Problems Problem Type SNOMED Code ICD Code Onset Dates Problem Status W/U Status Risk Notes Problem Gastroesophageal reflux disease (943767552) Gastroesophageal reflux disease, esophagitis presence not specified (K21.9) Active confirmed Plan Of Treatment Future Test Test Name Order Date UPPER GI ENDOSCOPY 11/12/2016 Insurance Providers Payer Name Payer Address Payer Phone Subscriber Number Group Number Insured Name Patient Relationship to Insured Coverage Start Date Coverage End Date [facility] [address] [address] [place] [address] [phone] [id number] JENNA ESPINOZA Self - patient is the insured Medical (General) History Medical History History ICD Code Denies [place],DM,CVA,Lung disease,renal dise ase GERD
[2025-06-05 21:21] VITALS: BP 148/69; PULSE 100; RESP 18; TEMP 37.7; O2SAT 99
[2025-06-05] MEDS: Lactated Ringers 1,000 ML 999 ML IV ×2 (21:35→23:55)
[2025-06-05 21:44] LABS: Appearance Urine Clear; Glucose Urine UA Negative (Negative); PH 8.5 (5.0-9.0); Specific Gravity - Urine 1.020 (1.005-1.025)
[2025-06-05] MEDS: iohexoL 350 MG/ML 100 ML INFUS..BTL 85 ML IV (21:48)
[2025-06-05 22:02] VITALS: BP 146/103; PULSE 102; RESP 20; TEMP 37.5; O2SAT 96
[2025-06-05 23:04] VITALS: BP 138/96
[2025-06-05 23:40] VITALS: BP 133/87; PULSE 91; RESP 18; TEMP 37.4; O2SAT 97
[2025-06-05] MEDS: metroNIDAZOLE/NS 500 MG/100 ML PIGGYBACK 100 MG IV (23:40)
[2025-06-05] MEDS: Lactated Ringers 1,000 ML 125 ML IVCONT (23:54)
[2025-06-06] VITALS (18 sets, daily range): BP systolic 126–164; BP diastolic 69–95; PULSE 75–105; RESP 16–20; TEMP 36.2–37; O2SAT 93–99; BMI 32.6
--- NOTE | 2025-06-06 | ECG_ITS ---
Test Reason : preop ekg Blood Pressure : */* mmHG Vent. Rate : 100 BPM Atrial Rate : 100 BPM P-R Int : 150 ms QRS Dur : 84 ms QT Int : 332 ms P-R-T Axes : 40 58 28 degrees QTcB Int : 428 ms Normal sinus rhythm Normal ECG No previous ECGs available Referred By: Eddie Malone Electronically Signed By: Rodriguez Garduno
--- NOTE | 2025-06-06 00:52 | PC.NURSE ---
pt refused clonidine states they prescribed this to him as a prn and he prefers not to take it. he denies anxiety at this time.
[2025-06-06 04:30] LABS: MANUAL DIFF FLAG NO
[2025-06-06 04:32] LABS: Hematocrit 37.6 % (42.0-52.0); Hemoglobin 13.6 g/dl (14.0-18.0); Imm Gran Abs Auto 0.03 X10*3/uL (0.00-0.03); Imm Gran Pct Auto 0.3 % (0.0-0.4); Lymphocytes Absolute Auto 2.2 X10*3/uL (1.2-4.9); Mean Corpuscular HGB Conc 36.2 g/dl (31.0-36.0); Mean Corpuscular Hemoglobin 31.1 pg (27.0-33.0); Mean Corpuscular Volume 86.0 fL (80.0-98.0); NRBC Abs Auto 0.000 X10*3/uL (0.0-0.012); NRBC Pct Auto 0.0 /100WBC (0.0-0.2); Platelet Count 167 X10*3/uL (160-400); Red Blood Count 4.37 X10*6/uL (4.60-5.80); White Blood Count 9.7 X10*3/uL (4.8-10.8)
--- NOTE | 2025-06-06 07:25 | PC.NURSE ---
pt resting in the stretcher, respirations even and unlabored, skin pwd, pt reports pain at 3/10 does not want anything for pain at this time, denies nausea
--- NOTE | 2025-06-06 07:33 | P.HPGS_ITS ---
History of Present Illness History of Present Illness Date of Service: 06/06/25 <Eddie Malone PA-C - Last Filed: 06/06/25 07:50> 06/06/25 <Sampson Bolanos MD - Last Filed: 06/06/25 08:13> Chief complaint: acute appendicitis <Eddie Malone PA-C - Last Filed: 06/06/25 07:50> Narrative: Rolan Chakraborty is a 44 year old male with a history of HLD, HTN, TING who presented to the ED with a 1 cdya history of RLQ pain that started yesterday morning, worsened throughotut the day. He has some associated diarrhea. Reports subjective fevers at home. denies nausea or vomiting. workup in the Ed showed leukocytosis, 12.7, no electrolyte abnormalities. CT of the abdomen showing dilated appendix with appendicolith, diffuse periappendiceal inflammatory changes, no evidence of abscess or perforation. He was started on IV zosyn, fluids. Currently NPO He denies history of DM. Denies abdominal surigcal history, he has had oral surgery in the past. He denies smoking or drug use. currently pain improved slightly with medications but continues to have persistent RLQ pain. Non radiating. Denies any additional symptoms <Eddie Malone PA-C - Last Filed: 06/06/25 07:50> Review of Systems Review of Systems: Yes all other systems are reviewed and are negative <Eddie Malone PA-C - Last Filed: 06/06/25 07:50> PMFSH Past Medical History Medical History: Medical History Herpes simplex Overweight GERD (gastroesophageal reflux disease) <Eddie Malone PA-C - Last Filed: 06/06/25 07:50> Family History Family History: Family History Father COPD (chronic obstructive pulmonary disease) HTN (hypertension) Mother Cancer Diabetes Breast cancer, Onset Age: 51 <Eddie Malone PA-C - Last Filed: 06/06/25 07:50> Social History Social History: Social History Housing: House Alcohol intake: current Alcohol intake frequency: 0-2 drinks per day Alcohol type: beer Patient Tobacco Use Status: Never used Tobacco Tobacco use type: Cigarette Smoked in Last 30 Days: No e-Cigarette/Vaping Use: Never Used Second Hand Smoke Exposure: No Use of substances other than those prescribed or required for medical reasons: No Substance Use Type: Marijuana Advance Directives: No Advance Directives Information Provided: No Do you have a plan to hurt others: No Plan Nutrition Risks: No Nutritional Risk Current occupational status: employed Current occupation: [employer] Cognitive needs: No Hearing needs: No Vision needs: Yes <Eddie Malone PA-C - Last Filed: 06/06/25 07:50> Meds Allergies/Adverse reactions: Allergies Allergy/AdvReac Type Severity Reaction Status Date / Time No Known Allergies Allergy Verified 06/05/25 18:14 <Eddie Malone PA-C - Last Filed: 06/06/25 07:50> Active Medications: Current Medications Albuterol Sulfate (Albuterol Sulfate 90 Mcg 8 Gm Inhaler) 2 puff INHALE RQ4H PRN PRN Reason: Shortness of Breath/Wheezing Alprazolam (Alprazolam 0.5 Mg Tablet) 0.5 mg PO BID PRN PRN Reason: Anxiety Calcium Carbonate (Calcium Carbonate 750 Mg Tab.Chew) 750 mg PO Q4H PRN PRN Reason: Heartburn Clonidine HCl (Clonidine Hcl 0.1 Mg Tablet) 0.1 mg PO BID [facility]; Protocol Last Admin: 06/06/25 00:52 Dose: Not Given Lactated Ringer's (Lr) 1,000 mls @ 125 mls/hr IVCONT .Q8H [facility] Last Admin: 06/05/25 23:54 Dose: 125 mls/hr Piperacillin Sod/Tazobactam (Sod 3.375 gm/ Sodium Chloride) 50 mls @ 100 mls/hr IV Q6H [facility] Last Infusion: 06/06/25 06:15 Dose: Infused Acetaminophen (Ofirmev) 1,000 mg in 100 mls @ 400 mls/hr IV Q6H [facility] Last Infusion: 06/06/25 05:59 Dose: Infused Ketorolac Tromethamine (Ketorolac Tromethamine 15 Mg/Ml Vial) 15 mg IVPUSH Q6H PRN PRN Reason: Pain, Mild 1-3,fever,headache Magnesium Hydroxide (Milk Of Magnesia 30 Ml Oral.Susp) 30 ml PO DAILY PRN PRN Reason: Constipation Melatonin (Melatonin 3 Mg Tablet) 6 mg PO BEDTIME PRN PRN Reason: Insomnia Morphine Sulfate (Morphine Sulfate 4 Mg/Ml Cartridge) 4 mg IVPUSH Q4H PRN; Protocol PRN Reason: Pain, Severe (Pain Scale 7-10) Omeprazole (Omeprazole 20 Mg Capsule.Dr) 20 mg PO DAILY@0630 [facility] Last Admin: 06/06/25 05:45 Dose: 20 mg Ondansetron HCl (Ondansetron Hcl 4 Mg/2 Ml Vial) 4 mg IVPUSH Q8H PRN PRN Reason: Nausea and Vomiting Oxycodone HCl (Oxycodone Hcl Immed Release 5 Mg Tablet) 5 mg PO Q4H PRN PRN Reason: Pain, Moderate(Pain Scale 4-6) Sodium Chloride (0.9 % Sodium Chloride Flush 3 Ml Syringe) 3 ml IVFLUSH QSHIFT [facility] Last Admin: 06/06/25 07:20 Dose: Not Given <GREGORY Chilel Last Filed: 06/06/25 07:50> Home medications: Home Medications ?Medication ?Instructions ?Recorded ?Confirmed ?Last Taken ?Type clonidine HCl 0.1 mg tablet 0.1 mg PO BID 08/26/2005/25 Unknown History omeprazole 20 mg capsule,delayed 20 mg PO DAILY 04/11/24 Unknown History release bupropion HCl 300 mg 24 hr tablet, 300 mg PO DAILY 12/24 Unknown History extended release (Wellbutrin XL) <GREGORY Chilel Last Filed: 06/06/25 07:50> Physical Exam Vital Signs: Vital Signs: Last Vital Signs Temp 98.5 F 06/06/25 07:24 Pulse 80 06/06/25 07:24 Resp 16 06/06/25 07:24 BP 140/95 H 06/06/25 07:24 Pulse Ox 98 06/06/25 07:24 O2 Del Method Room Air 06/06/25 07:24 BMI result Body Mass Index 32.6 <GREGORY Chilel Last Filed: 06/06/25 07:50> Const: General: comfortable and no acute distress <GREGORY Chilel Last Filed: 06/06/25 07:50> Orientation/consciousness: patient oriented x3 <GREGORY Chilel Last Filed: 06/06/25 07:50> Resp: Effort & Inspection: normal respiratory effort and able to speak in complete sentences <GREGORY Chilel Last Filed: 06/06/25 07:50> GI: Palpation (GI): Soft to palpation, Tenderness to palpation present (GI) in the RLQ and at McBurney's point; with no rebound tenderness and Rovsing's sign negative and no guarding <GREGORY Chilel Last Filed: 06/06/25 07:50> Neuro: General: patient oriented x3 <GREGORY Chilel Filed: 06/06/25 07:50> Results Results Labs: Short CBC 06/05/25 06/06/25 Range/Units 19:03 04:24 WBC 12.7 H 9.7 (4.8-10.8) X10*3/uL Hgb 16.0 13.6 L (14.0-18.0) g/dl Hct 43.1 37.6 L (42.0-52.0) % Plt Count 221 167 (160-400) X10*3/uL BMP 06/05/25 19:03 Sodium 139 Potassium 4.0 Chloride 104 Carbon Dioxide 27 BUN 11 Creatinine 1.13 Calcium 9.4 Liver Function 06/05/25 Range/Units 19:03 Total Bilirubin 1.1 H (0.0-1.0) mg/dL AST 28 (5-37) U/L ALT 44 H (0-40) U/L Alkaline Phosphatase 85 (39-117) U/L Albumin 4.8 (3.5-5.0) g/dL Urine 06/05/25 Range/Units 21:35 Urine Color Yellow Urine Appearance Clear Urine pH 8.5 (5.0-9.0) Ur Specific [place] 1.020 (1.005-1.025) Urine Protein Negative (Neg-Trace) mg/dL Urine Glucose (UA) Negative (Negative) mg/dL <GREGORY Chilel Last Filed: 06/06/25 07:50> Assessment and Plan (1) Acute appendicitis with localized peritonitis without abscess: Qualifiers: Appendicitis gangrene presence: without gangrene Appendicitis perforation presence: without perforation Qualified Code(s): K35.30 - Acute appendicitis with localized peritonitis, without perforation or gangrene <Eddie Malone PA-C - Last Filed: 06/06/25 07:50> Status: Acute <Eddie Malone PA-C - Last Filed: 06/06/25 07:50> 44-year-old male, otherwise healthy, with right lower quadrant pain for the past 24 hours No fever Abdomen soft but tender in right lower quadrant I have reviewed his CAT scan images - significant inflammatory changes in the appendix along with a an appendicolith in the proximal appendix Consistent with acute appendicitis I explained to him the technique of laparoscopic appendectomy and possible open appendectomy I reviewed with him the risks including but not limited to bleeding, infections, injury to other organs including bowel and the urinary tract, as well as the benefits and alternatives I reviewed with him what to expect postoperatively He has given consent Also discussed with his Alejandrina Seen and examined independently <Sampson Bolanos MD - Last Filed: 06/06/25 08:13> 44 year old male with a history of HLD, HTN, TING who presented to the ED with a 1 day history of RLQ pain that started yesterday morning, worsened throughout the day. He has some associated diarrhea. Upon presentation to the ED, patient was found to have a mild leukocytosis, CT showing acute appendicitis without abscess or perforation. There is a dilated appendix with visable appendicolith, and diffuse fat stranding surrounding the appendix. On exam he is tender in the RLQ, negative rosvings and rebound tenderness. He has been stared on IV zosyn, fluids. At this point will need to proceed with laparoscopic appendectomy possible open. We discussed risks benefits and alternatives of the procedure. Patient understands and agrees to this plan. He has been added onto the schedule for later today. He is hypertensive this morning, med history significant for hypertension but not on any antihypertensive medications. Possibly related to pain, we will continue to follow up. If not improving we will consult hospitalist, or patient can follow up with primary as outpatient. NPO Continue IV Zosyn IV fluids Pain control as needed Laparoscopic appendectomy possible open <Eddie Malone PA-C - Last Filed: 06/06/25 07:50> Quality Stroke Does the patient have a stroke diagnosis?: No <Sampson Bolanos MD - Last Filed: 06/06/25 08:13> VTE Prior VTE?: No <Sampson Bolanos MD - Last Filed: 06/06/25 08:13> VTE Risk Level:: Surgical - moderate <Eddie Malone PA-C - Last Filed: 06/06/25 07:50> VTE Device Contraindication: N/A - Device Ordered <Eddie Malone PA-C - Last Filed: 06/06/25 07:50> VTE Drug Contraindication: Treatment Not Indicated <Eddie Malone PA-C - Last Filed: 06/06/25 07:50> Procedures Date of Service Date of Service: 06/06/25 <Eddie Malone PA-C - Last Filed: 06/06/25 07:50> 06/06/25 <Sampson Bolanos MD - Last Filed: 06/06/25 08:13>
[2025-06-06] MEDS: Lactated Ringers 1,000 ML 125 ML IVCONT (08:13)
--- NOTE | 2025-06-06 08:23 | PHA.MEDREC ---
Addendum entered by Cheko Aguilar PharmD 06/06/25 08:32: reviewed Original Note: Pharmacy Consult ? Medication Reconciliation Pharmacy has completed the medication reconciliation. Spoke with pt and he confirmed his medications. Pt still has Alprazolam tabs at home as needed for anxiety and Valcyclovir as needed for outbreaks, pt takes Omerprazole caps QD he gets OTC and Magnesium QD but doesn't remember the dose of that at this time.
--- NOTE | 2025-06-06 08:26 | HO.ANESPROP2 ---
Documented by User: Nancy Mcginnis NP 06/06/25 08:27 HPI - Anesthesia Eval Consult details Narrative: 44 yr old old male for Appendectomy Laparoscopic +marijuana use GERD: on PPI PMFSH Active Problems Active Problems: All Active Problems Acute appendicitis with localized peritonitis without abscess (Acute) HLD (hyperlipidemia) (Acute) HTN (hypertension) (Acute) Annual physical exam (Acute) Obese (Acute) Screening for diabetes mellitus (DM) (Acute) Lumbar spine pain (Acute) TING (generalized anxiety disorder) (Acute) Past Medical History Medical History Herpes simplex Overweight GERD (gastroesophageal reflux disease) Family History Family History Father COPD (chronic obstructive pulmonary disease) HTN (hypertension) Mother Cancer Diabetes Breast cancer, Onset Age: 51 Social History Social History Housing: House Alcohol intake: current Alcohol intake frequency: 0-2 drinks per day Alcohol type: beer Patient Tobacco Use Status: Never used Tobacco Tobacco use type: Cigarette Smoked in Last 30 Days: No e-Cigarette/Vaping Use: Never Used Second Hand Smoke Exposure: No Use of substances other than those prescribed or required for medical reasons: No Substance Use Type: Marijuana Advance Directives: No Advance Directives Information Provided: No Do you have a plan to hurt others: No Plan Nutrition Risks: No Nutritional Risk Current occupational status: employed 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 Cognitive needs: No Hearing needs: No Vision needs: Yes Meds Allergies Allergy/AdvReac Type Severity Reaction Status Date / Time No Known Allergies Allergy Verified 06/05/25 18:14 Active Medications: Current Medications Albuterol Sulfate (Albuterol Sulfate 90 Mcg 8 Gm Inhaler) 2 puff INHALE RQ4H PRN PRN Reason: Shortness of Breath/Wheezing Alprazolam (Alprazolam 0.5 Mg Tablet) 0.5 mg PO BID PRN PRN Reason: Anxiety Calcium Carbonate (Calcium Carbonate 750 Mg Tab.Chew) 750 mg PO Q4H PRN PRN Reason: Heartburn Clonidine HCl (Clonidine Hcl 0.1 Mg Tablet) 0.1 mg PO BID LOAN; Protocol Last Admin: 06/06/25 08:15 Dose: Not Given Lactated Ringer's (Lr) 1,000 mls @ 125 mls/hr IVCONT .Q8H [facility] Last Admin: 06/06/25 08:13 Dose: 125 mls/hr Piperacillin Sod/Tazobactam (Sod 3.375 gm/ Sodium Chloride) 50 mls @ 100 mls/hr IV Q6H [facility] Last Infusion: 06/06/25 06:15 Dose: Infused Acetaminophen (Ofirmev) 1,000 mg in 100 mls @ 400 mls/hr IV Q6H [facility] Last Infusion: 06/06/25 05:59 Dose: Infused Ketorolac Tromethamine (Ketorolac Tromethamine 15 Mg/Ml Vial) 15 mg IVPUSH Q6H PRN PRN Reason: Pain, Mild 1-3,fever,headache Magnesium Hydroxide (Milk Of Magnesia 30 Ml Oral.Susp) 30 ml PO DAILY PRN PRN Reason: Constipation Melatonin (Melatonin 3 Mg Tablet) 6 mg PO BEDTIME PRN PRN Reason: Insomnia Morphine Sulfate (Morphine Sulfate 4 Mg/Ml Cartridge) 4 mg IVPUSH Q4H PRN; Protocol PRN Reason: Pain, Severe (Pain Scale 7-10) Omeprazole (Omeprazole 20 Mg Capsule.Dr) 20 mg PO DAILY@06 [facility] Last Admin: 06/06/25 05:45 Dose: 20 mg Ondansetron HCl (Ondansetron Hcl 4 Mg/2 Ml Vial) 4 mg IVPUSH Q8H PRN PRN Reason: Nausea and Vomiting Oxycodone HCl (Oxycodone Hcl Immed Release 5 Mg Tablet) 5 mg PO Q4H PRN PRN Reason: Pain, Moderate(Pain Scale 4-6) Sodium Chloride (0.9 % Sodium Chloride Flush 3 Ml Syringe) 3 ml IVFLUSH QSHIFT [facility] Last Admin: 06/06/25 07:20 Dose: Not Given Home Medications ?Medication ?Instructions ?Recorded ?Confirmed ?Last Taken ?Type omeprazole 20 mg capsule,delayed 20 mg PO DAILY@0630 08/26/20 06/06/25 06/05/25 History release bupropion HCl 300 mg 24 hr tablet, 300 mg PO DAILY 06/06/25 06/06/25 06/05/25 History extended release (Wellbutrin XL) valacyclovir 1 gram tablet 1,000 mg PO DAILY PRN Outbreak 06/06/25 06/06/25 Unknown History (Valtrex) Exam Height,Weight and Vital Signs: Height 5 ft 7 in Weight 94.5 kg Last Vital Signs Temp 98.5 F 06/06/25 07:24 Pulse 80 06/06/25 07:24 Resp 16 06/06/25 07:24 BP 140/95 H 06/06/25 07:24 Pulse Ox 98 06/06/25 07:24 O2 Del Method Room Air 06/06/25 07:24 Pertinent Lab Results Pertinent Lab Results: Laboratory Tests 06/05/25 06/05/25 06/05/25 19:03 21:25 21:35 WBC 12.7 H RBC 5.04 Hgb 16.0 Hct 43.1 MCV 85.5 MCH 31.7 MCHC 37.1 H RDW 12.9 Plt Count 221 MPV 10.4 Immature Gran % (Auto) 0.2 Neut % (Auto) 75.7 H Lymph % (Auto) 17.2 L [place] % (Auto) 5.3 Eos % (Auto) 1.2 Baso % (Auto) 0.4 Lymph # (Auto) 2.2 [place] # (Auto) 0.7 Eos # (Auto) 0.2 Baso # (Auto) 0.1 Abs Immat Gran (auto) 0.03 Absolute Neuts (auto) 9.6 H Absolute Nucleated RBC 0.000 Nucleated RBC % (auto) 0.0 Sodium 139 Potassium 4.0 Chloride 104 Carbon Dioxide 27 Anion Gap 12 BUN 11 Creatinine 1.13 Estim Creat Clear Calc 93.3 Estimated GFR > 60 Random Glucose 102 Lactic Acid 1.1 Calcium 9.4 Total Bilirubin 1.1 H AST 28 ALT 44 H Alkaline Phosphatase 85 Total Protein 7.2 Albumin 4.8 Urine Color Yellow Urine Appearance Clear Urine pH 8.5 Ur Specific [place] 1.020 Urine Protein Negative Urine Glucose (UA) Negative Urine Ketones Trace Urine Blood Negative Urine Nitrite Negative Ur Leukocyte Esterase Negative 06/06/25 04:24 WBC 9.7 RBC 4.37 L Hgb 13.6 L Hct 37.6 L MCV 86.0 MCH 31.1 MCHC 36.2 H RDW 12.7 Plt Count 167 MPV 10.4 Immature Gran % (Auto) 0.3 Neut % (Auto) 69.4 Lymph % (Auto) 22.5 [place] % (Auto) 6.0 Eos % (Auto) 1.3 Baso % (Auto) 0.5 Lymph # (Auto) 2.2 [place] # (Auto) 0.6 Eos # (Auto) 0.1 Baso # (Auto) 0.1 Abs Immat Gran (auto) 0.03 Absolute Neuts (auto) 6.7 Absolute Nucleated RBC 0.000 Nucleated RBC % (auto) 0.0 Sodium Potassium Chloride Carbon Dioxide Anion Gap BUN Creatinine Estim Creat Clear Calc Estimated GFR Random Glucose Lactic Acid Calcium Total Bilirubin AST ALT Alkaline Phosphatase Total Protein Albumin Urine Color Urine Appearance Urine pH Ur Specific [place] Urine Protein Urine Glucose (UA) Urine Ketones Urine Blood Urine Nitrite Ur Leukocyte Esterase Documented by User: Mary Kate Camp MD 06/06/25 08:57 [facility] Past Medical History Medical History Herpes simplex Overweight GERD (gastroesophageal reflux disease) Family History Family History Father COPD (chronic obstructive pulmonary disease) HTN (hypertension) Mother Cancer Diabetes Breast cancer, Onset Age: 51 Family history of problems with anesthesia: No Surgical History History of Problems with Anesthesia: No Social History Social History Housing: House Alcohol intake: current Alcohol intake frequency: 0-2 drinks per day Alcohol type: beer Patient Tobacco Use Status: Never used Tobacco Tobacco use type: Cigarette Smoked in Last 30 Days: No e-Cigarette/Vaping Use: Never Used Second Hand Smoke Exposure: No Use of substances other than those prescribed or required for medical reasons: No Substance Use Type: Marijuana Advance Directives: No Advance Directives Information Provided: No Do you have a plan to hurt others: No Plan Nutrition Risks: No Nutritional Risk Current occupational status: employed 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 needs: No Hearing needs: No Vision needs: Yes Meds Allergies Allergy/AdvReac Type Severity Reaction Status Date / Time No Known Allergies Allergy Verified 06/05/25 18:14 Home Medications ?Medication ?Instructions ?Recorded ?Confirmed ?Last Taken ?Type omeprazole 20 mg capsule,delayed 20 mg PO DAILY@0630 08/26/20 06/06/25 06/05/25 History release bupropion HCl 300 mg 24 hr tablet, 300 mg PO DAILY 06/06/25 06/06/25 06/05/25 History extended release (Wellbutrin XL) valacyclovir 1 gram tablet 1,000 mg PO DAILY PRN Outbreak 06/06/25 06/06/25 Unknown History (Valtrex) Exam Airway Mallampati Class: III TM Dist: >3cm Neck ROM: Full Heart: rrr Lungs: cta Assessment and Plan Assessment Anesthesia Assessment: Anesthesia Plan Discussed and Chart Reviewed Final Anesthetic Review Family History of Problems with Anesthesia: No History of Problems with Anesthesia: No NPO: Yes ASA Class: II Final Preanesthetic Review: No Changes in Pt Med Stat, Meds/Allgs Chart Reviewed and Consent Obtained/Reviewed Patient Risk: Low Procedure Risk: Low Anesthetic Plan Anesthetic Plan: GA Disposition: Standard PACU
--- NOTE | 2025-06-06 08:34 | PC.NURSE ---
report given to short stay surgery
--- NOTE | 2025-06-06 10:08 | P.OP_ITS ---
Operative Note Operative Note Date of Service: 06/06/25 Narrative: Preop diagnosis: Acute appendicitis Postop diagnosis: Acute appendicitis, with a very indurated, markedly inflamed appendix Procedure: Laparoscopic appendectomy Surgeon: Sampson Bolanos MD assistant research scientist: ASHLEY Malone The patient is a 44-year-old male, with right lower quadrant pain and tenderness for about 2 days. His CAT scan shows significant inflammatory changes around the appendix with a an appendicolith. He understood the technique of the planned procedure as well as the risks, benefits, and alternatives. He was brought to the operating room. He was placed supine under general anesthesia via endotracheal tube. The abdomen was prepped and draped in the usual sterile fashion. A surgical time-out was done. The patient was receiving scheduled antibiotics I made a short infraumbilical incision with a blade 15. This carried down through the full-thickness of the skin and subcutaneous fat down to the fascia. This has noted that the patient had a very thick amount of subcutaneous fat. The fascia was incised. The peritoneum was entered. Through this incision a Gutierrez port was introduced. Pneumoperitoneum was introduced to a pressure of 15 mm Hg. From here on the rest of the procedure was done under vision with the 10 mm 30 degree scope alternating with a 5 mm 30 degree scope.. With laparoscopic visualization I inserted a 5 mm in the left lower quadrant through a small stab incision. A 5 mm port was introduced through a small incision in the suprapubic margin. Graspers were placed through the these 2 working ports. The patient was placed in a head-down and [id number] position. We reflected the small bowel loops away from the right lower quadrant. By doing so was able to visualize the cecum. By tracing the tenia of the colon, I was able to see the appendix. The appendix was very indurated, markedly inflamed, very erythematous and adherent to the sidewall. I applied a grasper gently on the distal end of the appendix to put this on stretch. By doing so was able to visualize the base of the appendix. I created a mesenteric window using the [place] dissector. I positioned the Endo-GIGI 30 mm stapler across the base of the appendix near the cecum. This was fired and the appendix was transected. With traction on the appendix anteriorly I proceeded then serially divide the attached mesentery of the appendix with the LigaSure until the entire appendix was completely . The appendix was retrieved through an endobag through the umbilical incision. I reinserted all ports and re-insufflated I examined the area of dissection. There was note of good hemostasis. There was no bleeding seen. I observed all 4 quadrants. There was no other pathology seen. There was no evidence of any bowel injury. I copiously irrigated the right lower quadrant as well as the pelvis and suctioned out the irrigant fluid Once hemostasis was confirmed, I proceeded to desufflated the port sites. I removed all ports under vision with the laparoscope. The umbilical port was removed last . We closed the fascia of the umbilical incision with a [id number] Polysorb 0 stitch. Skin closure was achieved on all incisions using Polysorb 4-0 subcuticular running sutures All incisions were infiltrated with Marcaine 0.5% for postop analgesia. Dressings were applied. The procedure was completed The patient tolerated the procedure well. There were no immediate complications. Initial and final counts of sponges and instruments were correct. Estimated blood loss was less than 10 cc The patient was extubated without difficulty and transferred to the recovery room with stable vital signs.
[2025-06-06] MEDS: oxyCODONE HCl Immed Release 5 MG TABLET PO ×2 (11:25→16:53)
--- NOTE | 2025-06-06 14:13 | MHC.CM.PN ---
Patient lives at home w/ & 2 kids 11 & 13 YO. Independent w/ all care. Denies use of DME or services. PCP Asher RAMIREZ No HCP. CM provided education and offered assistance. Declined at this time. DP: Home self care. to transport. CM will continue to follow.
[2025-06-06] MEDS: 0.9 % Sodium Chloride Flush 3 ML SYRINGE IVFLUSH ×2 (14:42→22:18)
--- NOTE | 2025-06-06 15:57 | PM.EVENT ---
Event Note Date of Service: 06/06/25 Event Note: Seen afternoon rounds Underwent laparoscopic appendectomy, uneventful this morning He says he has good pain control Stable vital signs, abdomen is soft, he has not had any food - says he is ordered for a tray but this has not come He wants to stay overnight Plan to discharge in the morning Clinically doing well at bedside Time Spent With Patient Time: Total time managing care of this patient today ____ minutes.
[2025-06-07 03:18] VITALS: BP 127/80; PULSE 61; RESP 14; TEMP 36.1; O2SAT 94
[2025-06-07 07:31] VITALS: BP 129/85; PULSE 68; RESP 16; TEMP 36.1; O2SAT 97
[2025-06-07 07:39] VITALS: BP 125/77; PULSE 73; RESP 16; TEMP 36.1; O2SAT 97
--- NOTE | 2025-06-07 07:40 | P.PNGS_ITS ---
Subjective Subjective Date of Service: 06/07/25 <Eddie Malone PA-C - Last Filed: 06/07/25 08:29> 06/07/25 <Sampson Bolanos MD - Last Filed: 06/07/25 08:50> Interval history: doing well, pain well controlled, tolerating diet. Denies nausea, Vomiting. <Eddie Malone PA-C - Last Filed: 06/07/25 08:29> Physical Exam 2 Vital Signs: Vital Signs: Last Vital Signs Temp 96.9 F 06/07/25 07:39 Pulse 73 06/07/25 07:39 Resp 16 06/07/25 07:39 BP 125/77 06/07/25 07:39 Pulse Ox 97 06/07/25 07:39 O2 Del Method Room Air 06/07/25 07:39 O2 Flow Rate 6 06/06/25 10:45 BMI result Body Mass Index 32.6 <Eddie Malone PA-C - Last Filed: 06/07/25 08:29> Const: General: comfortable and no acute distress <Eddie Malone PA-C - Last Filed: 06/07/25 08:29> Orientation/consciousness: patient oriented x3 <Eddie Malone PA-C - Last Filed: 06/07/25 08:29> GI: Other: Dressings in place, there is minimal saturation. <Eddie Malone PA-C - Last Filed: 06/07/25 08:29> Inspection: No distended <Eddie Malone PA-C - Last Filed: 06/07/25 08:29> Palpation (GI): Soft to palpation, Tenderness to palpation present (GI) (Mild incisional) and no guarding <Eddie Malone PA-C - Last Filed: 06/07/25 08:29> Neuro: General: patient oriented x3 <GREGORY Chilel Last Filed: 06/07/25 08:29> Objective Data Active Medications Albuterol Sulfate (Albuterol Sulfate 90 Mcg 8 Gm Inhaler) 2 puff INHALE RQ4H PRN PRN Reason: Shortness of Breath/Wheezing Alprazolam (Alprazolam 0.5 Mg Tablet) 0.5 mg PO BID PRN PRN Reason: Anxiety Calcium Carbonate (Calcium Carbonate 750 Mg Tab.Chew) 750 mg PO Q4H PRN PRN Reason: Heartburn Clonidine HCl (Clonidine Hcl 0.1 Mg Tablet) 0.1 mg PO BID [facility]; Protocol Last Admin: 06/06/25 21:53 Dose: Not Given Documented By: SEJAL Non-Admin Reason: Patient Refused Piperacillin Sod/Tazobactam (Sod 3.375 gm/ Sodium Chloride) 50 mls @ 100 mls/hr IV Q6H [facility] Last Infusion: 06/07/25 04:05 Dose: Infused Documented By: SEJAL Acetaminophen (Ofirmev) 1,000 mg in 100 mls @ 400 mls/hr IV Q6H [facility] Last Infusion: 06/07/25 03:32 Dose: Infused Documented By: SEJAL Ketorolac Tromethamine (Ketorolac Tromethamine 15 Mg/Ml Vial) 15 mg IVPUSH Q6H PRN PRN Reason: Pain, Mild 1-3,fever,headache Magnesium Hydroxide (Milk Of Magnesia 30 Ml Oral.Susp) 30 ml PO DAILY PRN PRN Reason: Constipation Melatonin (Melatonin 3 Mg Tablet) 6 mg PO BEDTIME PRN PRN Reason: Insomnia Morphine Sulfate (Morphine Sulfate 4 Mg/Ml Cartridge) 4 mg IVPUSH Q4H PRN; Protocol PRN Reason: Pain, Severe (Pain Scale 7-10) Last Admin: 06/06/25 18:41 Dose: 4 mg Documented By: TRACEE Omeprazole (Omeprazole 20 Mg Capsule.Dr) 20 mg PO DAILY@0630 [facility] Last Admin: 06/07/25 06:05 Dose: 20 mg Documented By: SEJAL Ondansetron HCl (Ondansetron Hcl 4 Mg/2 Ml Vial) 4 mg IVPUSH Q8H PRN PRN Reason: Nausea and Vomiting Oxycodone HCl (Oxycodone Hcl Immed Release 5 Mg Tablet) 5 mg PO Q4H PRN PRN Reason: Pain, Moderate(Pain Scale 4-6) Last Admin: 06/06/25 16:53 Dose: 5 mg Documented By: TRACEE Sodium Chloride (0.9 % Sodium Chloride Flush 3 Ml Syringe) [facility] Last Admin: 06/06/25 22:18 Dose: 3 ml Documented By: SEJAL Malone PA-C - Last Filed: 06/07/25 08:29> Labs CBC & Chem 7: 06/06/25 04:24 06/05/25 19:03 <Eddie Malone PA-C - Last Filed: 06/07/25 08:29> Microbiology Microbiology Results: Microbiology 06/05/25 21:35 Blood Culture - Preliminary Blood - Venous No growth after 24 hours. 06/05/25 21:25 Blood Culture - Preliminary Blood - Venous No growth after 24 hours. <Eddie Malone PA-C - Last Filed: 06/07/25 08:29> Procedures Date of Service Date of Service: 06/07/25 <Eddie Malone PA-C - Last Filed: 06/07/25 08:29> 06/07/25 <Sampson Bolanos MD - Last Filed: 06/07/25 08:50> Progress Note: A&P Assessment and plan (1) S/P laparoscopic appendectomy: Status: Acute <Eddie Malone PA-C - Last Filed: 06/07/25 08:29> Assessment and Plan: Continues to do well No events reported Tolerating diet Abdomen is soft and Okay to DC Instructions reinforced with the patient Seen and examined independently <Sampson Bolanos MD - Last Filed: 06/07/25 08:50> Assessment and Plan: 44-year-old male POD 1 s/p laparoscopic appendectomy. Patient tolerated the procedure well, was transferred back to [facility], seen yesterday for possible discharge in the afternoon decided for pain control. Today states pain is well controlled. He is tolerating diet, ambulating. No issues with urination. He feels well. Abdomen is soft and benign some mild incisional tenderness. Incision site dressings in place, scant saturation. At this point we will discharge patient home. Reinforced activity restrictions. He is to follow up in 2 weeks in the office. <Eddie Malone PA-C - Last Filed: 06/07/25 08:29> Time Spent With Patient Time: Total time managing care of this patient today ____ minutes. <Eddie Malone PA-C - Last Filed: 06/07/25 08:29> Quality Stroke Does the patient have a stroke diagnosis?: No <Eddie Malone PA-C - Last Filed: 06/07/25 08:29> VTE Prior VTE?: No <Eddie Malone PA-C - Last Filed: 06/07/25 08:29> VTE Risk Level:: Surgical - moderate <Eddie Malone PA-C - Last Filed: 06/07/25 08:29> VTE Device Contraindication: N/A - Device Ordered <Eddie Malone PA-C - Last Filed: 06/07/25 08:29> VTE Drug Contraindication: Treatment Not Indicated <Eddie Malone PA-C - Last Filed: 06/07/25 08:29>
--- NOTE | 2025-06-07 08:04 | HO.POSTANES ---
Post Anesthesia Evaluation Post Anesthesia Evaluation Date of Service: 06/07/25 Vital Signs: Vital Signs Temp Pulse Resp BP Pulse Ox O2 Del Method 06/07/25 07:39 96.9 F 73 16 125/77 97 Room Air 06/07/25 07:31 97.0 F 68 16 129/85 97 Room Air 06/07/25 03:18 97.0 F 61 14 127/80 94 Room Air Anesthesia: General Mental Status: Awake Pain Control: Satisfactory Nausea/Vomiting: None Hydration: Adequate Anesthesia-Related Issues: No Anes. Related Issues
--- NOTE | 2025-06-07 08:28 | MHC.CM.PN ---
Patient medically cleared for dc home self care via private transport.
[2025-06-07 09:26] VITALS: BP 133/87; PULSE 89; RESP 16; TEMP 36; O2SAT 95
--- NOTE | 2025-06-07 15:39 | PM.DS ---
DS: Providers Provider Date of Service: 06/07/25 Date of admission: 06/05/25 23:08 Date of discharge: 06/07/25 Primary care physician: Asher Chacon PA-C Admitting clinician: Sampson Bolanos Attending physician on admission: Sampson Bolanos Attending physician on discharge: Sampson Bolanos DS: Diagnosis Discharge Diagnosis (1) S/P laparoscopic appendectomy: Status: Acute DS: Summary Hospital Course Hospital Course: admission HPI: Rolan Chakraborty is a 44 year old male with a history of HLD, HTN, TING who presented to the ED with a 1 cdya history of RLQ pain that started yesterday morning, worsened throughotut the day. He has some associated diarrhea. Reports subjective fevers at home. denies nausea or vomiting. workup in the Ed showed leukocytosis, 12.7, no electrolyte abnormalities. CT of the abdomen showing dilated appendix with appendicolith, diffuse periappendiceal inflammatory changes, no evidence of abscess or perforation. He was started on IV zosyn, fluids. Currently NPO He denies history of DM. Denies abdominal surigcal history, he has had oral surgery in the past. He denies smoking or drug use. currently pain improved slightly with medications but continues to have persistent RLQ pain. Non radiating. Denies any additional symptoms Hospital course: Patient was admitted for acute appendicitis, started on IV zosyn. he was brought to the operating room for laparascopic appendectomy. A Bojorquez catheter was placed preoperatively and this was subsequently removed postoperatively. He tolerated the procedure well and was transferred to the [facility] floor for further management. Diet was advanced. We attempted to discharge patient later that day, but he did not feel ready as he was struggling with some pain control. On POD 1, Patient doing well. Pain well controlled, denying nausea or vomiting. Urinating at baseline. Denying fevers or chills. He felt ready to be discharged. At the time of discharge patient was in stable condition, abdomen was soft benign aside from appropriate incisional site tenderness. Incision dressings were in place with minimal strike through. Activity restrictions and return precautions were reinforced with the patient prior to discharge. He will follow up in 1-2 weeks in the office Time Attestation Discharge Coordination Time (in mins): 30 Quality: Safe Use of Opioids Does Pt have an Active Cancer Diagnosis on the Problem List?: No Quality: Stroke Does the patient have a stroke diagnosis?: No Physical Exam Vital Signs: Vital Signs: Last Vital Signs Temp 96.8 F 06/07/25 09:26 Pulse 89 06/07/25 09:26 Resp 16 06/07/25 09:26 BP 133/87 06/07/25 09:26 Pulse Ox 95 06/07/25 09:26 O2 Del Method Room Air 06/07/25 09:26 O2 Flow Rate 6 06/06/25 10:45 BMI result Body Mass Index 32.6 Const: General: comfortable and no acute distress Orientation/consciousness: patient oriented x3 GI: Other: Dressings in place, there is minimal saturation. Inspection: No distended Palpation (GI): Soft to palpation, Tenderness to palpation present (GI) (Mild incisional) and no guarding Neuro: General: patient oriented x3 DS: Data Data Completed and Pending Completed studies during hospitalization [Text1]: Pending at discharge 06/06/25 09:53 Surgical [PTH] Routine Labs on day of discharge: Preliminary micro results at discharge 06/05/25 21:35 Blood Culture - Preliminary Blood - Venous No growth after 24 hours. 06/05/25 21:25 Blood Culture - Preliminary Blood - Venous No growth after 24 hours. Discharge Plan Discharge Anticipated Discharge Date/Time: 06/07/25 09:58 Patient Disposition: Home, Self-Care Discharge Diagnosis: acute appendicitis s/p laparoscopic appendectomy Referrals: Asher Chacon PA-C [Primary Care Provider, Internal Medicine] - 1 Week Sampson Bolanos MD [Physician, General Surgery] - 2 Weeks Discharge Medications: New docusate sodium [Colace] 100 mg capsule 100 mg PO BID PRN (Reason: constipation) Qty: 30 0RF oxycodone 5 mg tablet 5 mg PO Q4H PRN (Reason: pain (scale score 7-10)) Qty: 24 0RF Rx Instructions: Partial Fill upon patient request. Continued alprazolam 0.5 mg tablet 0.5 mg PO DAILY PRN (Reason: anxiety) 2 Days Qty: 2 0RF ibuprofen 800 mg tablet 800 mg PO Q8H 90 Days Qty: 270 0RF bupropion HCl [Wellbutrin XL] 300 mg tablet extended release 24 hr 300 mg PO DAILY valacyclovir [Valtrex] 1 gram tablet 1,000 mg PO DAILY PRN (Reason: Outbreak) omeprazole 20 mg capsule,delayed release(DR/EC) 20 mg PO DAILY@0630 (DME) blood pressure test kit-large Kit See Rx Instructions .Route Qty: 1 0RF Rx Instructions: As directed Discharge Orders: Discharge Order (Routine); Ordered 06/07/25 Ordered By: Eddie Malone Diet: Advance to usual diet Activity on Discharge: No heavy lifting Stand Alone Forms: Patient Portal Discharge page, Work/School Release Print Language: Serbian Activity Restrictions/Additional Instructions: If the incision area is tender, you may apply an ice pack for short intervals (No more than 20 minutes on, followed by at least 20 minutes off). Do not apply heat. Do not use creams, lotions, or topical antibiotics. These can cause infection or allergic reaction. Ok to shower 24 hours after your surgery. Remove bandaids in 2 days. You have steri strips (small white strips) covering your incision- these will fall off ~1 week. Follow up in office with Dr. Bolanos in 2 weeks. ([phone]) No heavy lifting (>10-20lbs) or strenuous activity! Call Your Doctor If: -Your temperature exceeds 101.5? F -You experience excessive pain or swelling -You have an unexpected reaction to medication -You have excessive bleeding -You experience continued vomiting/nausea -Your incision begins to separate -Your incision shows signs of infection such as increased redness, swelling, excessive pain, drainage (light blood or clear fluid is normal) or heat Care Plan Goals: Return to baseline health and resume normal activities following recovery period. Health Concerns: acute appendicitis hypertension anxiety Plan of Treatment: s/p laparoscopic appendectomy Pain control Follow up in the office in 2 weeks Assessment: Doing well post op. Discharge Date/Time: 06/07/25 09:33
== END 2025-06-07 09:33 | disposition home or self-care (01) | DRG 234 ==
LOC: HO.ED 23:02 → HO.EDOVER 23:25 → HO.SSSA 06-06 10:41 → HO.S3 06-06 12:44
PROVIDERS: Registered Nurse Emergency; Surgery; Admitting Provider Physician Assistant Surgical; Emergency Provider Emergency Medicine; PCP Physician Assistant; Visit Provider Physician Assistant Surgical
PROC: 0DTJ4ZZ Resection of Appendix, Percutaneous Endoscopic Approach (ICD-10-PCS; CPT 44970; principal; 2025-06-06 09:00)
DX: K35.30 Acute appendicitis with localized peritonitis, without perforation or gangrene (principal); F41.1 Generalized anxiety disorder; I10 Essential (primary) hypertension; K38.1 Appendicular concretions; Z79.899 Other long term (current) drug therapy
CPT/HCPCS: 44970; 36415; 74177; 76705; 80053; 81003; 83605; 85025; 87040; 88304; 93005; 99285; J0131; J0696; J1100; J1836; J1885; J2003; J2250; J2270; J2405; J2543; J2704; J2795; J3010; J7120; Q9967

== ENCOUNTER → 2025-06-05 18:13 | Outpatient (BNV) | payer OTHER, SELFPAY | PROVIDERS: PCP Physician Assistant; Visit Provider Radiology Diagnostic Radiology | DX: R10.813 Right lower quadrant abdominal tenderness (principal) | CPT/HCPCS: 76705 ==

== ENCOUNTER 2025-06-05 23:08 | Outpatient (BNV) | payer OTHER, SELFPAY | END 2025-06-06 08:39 | PROVIDERS: Admitting Provider Physician Assistant Surgical; Emergency Provider Emergency Medicine; PCP Physician Assistant; Visit Provider Internal Medicine Cardiovascular Disease | DX: Z01.810 Encounter for preprocedural cardiovascular examination (principal) | CPT/HCPCS: 93010 ==

== ENCOUNTER → 2025-06-05 23:08 | Outpatient (BNV) | payer OTHER, SELFPAY | PROVIDERS: Admitting Provider Physician Assistant Surgical; Emergency Provider Emergency Medicine; PCP Physician Assistant | DX: Z90.49 Acquired absence of other specified parts of digestive tract (principal) | CPT/HCPCS: 99238; 99499 ==

== ENCOUNTER 2025-06-15 13:55 | Outpatient (AMB) | payer OTHER, SELFPAY ==
--- NOTE | 2025-06-15 14:04 | MHC.PC.OV ---
Vital Signs 06/15/25 14:06 Height 5 ft 7 in Weight 207 lb 4 oz BMI 32.5 BP 132/80 Blood Pressure Location Lt brachial Position Sitting Pulse 103 H Pulse Source Pulse Oximeter Temp 97.3 F Temp Source Temporal Artery Scan Pulse Oximetry (%) 99 Oxygen Delivery Method Room Air Intake Visit Reasons: TCM [facility] 06/07 acute pancreatitis Intake Note: Patient is here for hospital discharge and TCM follow up. Patient was discharged from [facility] on 06/07/25. Adapted Physical Education Specialist Required: No Promotion Officer: Not Required per policy Accompanied by: Self / Same As Patient Allergies No Known Allergies Allergy (Verified 06/15/25 14:05) Tobacco use date assessed: 06/15/25 Dental Screening Dental Screen Date: 06/15/25 Did you have a dental visit in the last 12 months?: Yes Did you have a dental problem in the last 6 months where you did not have access to dental care?: No Was dental information given to patient?: Patient has dentist HPI TCM TCM Information Date of Discharge 06/07/25 Discharged From [facility] Interactive Contact Date (Reference documentation from this date) 06/12/25 HPI Comments History of Present Illness Details 45-year-old male presents today for hospital discharge follow-up after admission at [facility] from 06/05?06/07 for acute appendicitis, status-post laparoscopic appendectomy on 06/06. Past medical history includes HLD, HTN, depression with anxiety, GERD, and TING. He reports doing well overall. Denies severe pain, constipation, diarrhea, nausea, vomiting, fevers, chills, dysuria, or other urinary symptoms. Notes a good appetite and adequate hydration. No new concerns today. He has a scheduled post-operative appointment on 06/21. [facility] Medical History (Updated 06/15/25 @ 00:00 by Laci Nelson) Herpes simplex Overweight GERD (gastroesophageal reflux disease) Surgical History (Updated 06/15/25 @ 14:09 by KURT Goodwin) History of appendectomy Family History Father COPD (chronic obstructive pulmonary disease) HTN (hypertension) Mother Cancer Diabetes Breast cancer, Onset Age: 51 Social History (Updated 06/15/25 @ 14:10 by Shimarlia Kwade, RMA) Housing: House Do you presently have visiting nurse or other home services: No Alcohol intake: current Alcohol intake frequency: a few times a week Alcohol type: beer Comment: counts correct Patient Tobacco Use Status: Never used Tobacco Tobacco use type: Cigarette e-Cigarette/Vaping Use: Never Used Second Hand Smoke Exposure: No Substance Use Type: Marijuana service: No Current occupational status: employed Current occupation: [employer] Cognitive needs: No Hearing needs: No Vision needs: Yes (Glasses) Questionnaire PHQ-9 Over the last 2 weeks, how often have you been bothered by any of the following problems? 1. Little interest or pleasure in doing things: not at all 2. Feeling down, depressed, or hopeless: not at all 3. Trouble falling or staying asleep, or sleeping too much: not at all 4. Feeling tired or having little energy: not at all 5. Poor appetite or overeating: not at all 6. Feeling bad about yourself - or that you are a failure or have let yourself or your family down: not at all 7. Trouble concentrating on things, such as reading the newspaper or watching television: not at all 8. Moving or speaking so slowly that other people could have noticed. Or the opposite - being so fidgety or restless that you have been moving around a lot more than usual: not at all 9. Thoughts that you would be better off or of hurting yourself in some way: not at all Total score: 0 Depression Screening Interpretation: Negative Depression Screening Done: Yes Source: Developed by Drs. Elgin Orlando, Binta Peng, Moise Bustamante and colleagues, with an educational luigi from [employer]. Thrive Questionnaire Date Thrive assessed: 06/15/25 I am a: Patient What is your living situation today?: I have a steady place to live Within the past 12 months, did the food you bought not last and you didn't have the money to get more?: Never true Within the past 12 months, did you worry whether your food would run out before you got money to buy more?: Never true Do you have trouble paying for medicines?: No Do you have trouble getting transportation to medical appointments?: No Do you have trouble paying your heating and electricity bill?: No Do you have trouble taking care of your child, family member or friend?: No Do you have trouble with day-to-day activities such as bathing, preparing meals, shopping, managing finances, etc.?: No Are you currently unemployed and looking for a job?: No Are you interested in more education?: No Please select the resources that you would like help with: None Currently or been in a relationship where the following occur: No concerns reported THRIVE Score: 0 AUDIT C Alcohol Use Questionnaire (AUDIT-C) 1. How often do you have a drink containing alcohol?: 2-3 times a week 2. How many drinks containing alcohol do you have on a typical day when you are drinking?: 1 or 2 3. How often do you have six or more drinks on one occasion?: Never Total Score: 3 TING-7 AMB Questionnaire TING-7 Date TING - 7 assessed: 06/15/25 Feeling nervous, anxious, or on edge: 0 = Not at all Not being able to stop or control worryin = Not at all Worrying too much about different things: 0 = Not at all Trouble relaxin = Not at all Being so restless that it is hard to sit still: 0 = Not at all Becoming easily annoyed or irritable: 0 = Not at all Feeling afraid as if something awful might happen: 0 = Not at all Total TING-7 score (0-4 normal; 5-9 mild; 10-14 moderate; 15-21 severe): 0 Source: Developed by Drs. Elgin Orlando, Binta Peng, Moise Bustamante and colleagues, with an educational luigi from [employer]. Review of Systems Const All systems reviewed & are unremarkable except as noted in HPI and below Physical exam (Primary Care) Vital Signs: Last Vital Signs Temp 97.3 F 06/15/25 14:06 Pulse 103 H 06/15/25 14:06 BP 132/80 06/15/25 14:06 Pulse Ox 99 06/15/25 14:06 Oxygen Delivery Method Room Air 06/15/25 14:06 BMI result Body Mass Index 32.5 Tobacco/Smoking Status: Tobacco use Status Tobacco use date assessed 06/15/25 06/15/25 14:11 Patient Tobacco Use Status Never used Tobacco 06/15/25 14:11 Tobacco use type Cigarette 06/15/25 14:11 e-Cigarette/Vaping Use Never Used 06/15/25 14:11 PHQ-9: PHQ-9 Score PHQ-9: Total score 0 06/15/25 14:14 Depression Screening Interpretation: Negative Thrive Assessment: Date of Thrive Assessment Date Thrive assessed 06/15/25 06/15/25 14:11 Currently or been in a relationship where the following occur: No concerns reported Const General: no acute distress Nutritional Appearance: overweight Orientation/consciousness: patient oriented x3 Resp Effort & Inspection: normal respiratory effort Auscultation: clear to auscultation bilaterally Cardio Heart sounds: S1 normal heart sound present and S2 normal heart sound present GI Other: Mild expected postoperative tenderness. No rebound or guarding. Surgical sites clean, dry, intact; no erythema, drainage, or signs of infection. Inspection: Yes distended (Mild distention) Palpation (GI): Soft to palpation Auscultation: Hypoactive bowel sounds present Rectal Exam - Male: Yes deferred Neuro General: patient oriented x3, gait normal and moves all extremities Psych Speech and movement: Normal speech and movement present Coding Level of Care Code TCM Mod MDM <= 14 Days Diagnoses S/P laparoscopic appendectomy Z90.49 Time Spent (min) 25 Assessment & Plan Assessment & Plan (1) S/P laparoscopic appendectomy: Code(s): Z90.49 - Acquired absence of other specified parts of digestive tract Category: Surgical Plan: Status-post laparoscopic appendectomy (06/06), recovering well ? No red-flag symptoms; healing appropriately. Continue current postoperative care instructions as provided at discharge. Avoid heavy lifting or strenuous activity until cleared by surgery. Continue home medications as prescribed. Encourage adequate hydration, balanced diet, and rest. Reviewed red-flag symptoms (fever, worsening abdominal pain, purulent drainage, persistent vomiting) and advised to seek care if they occur. Follow up with surgery on 06/21 as scheduled.
[2025-06-15 14:06] VITALS: BP 132/80; PULSE 103; TEMP 36.3; O2SAT 99; BMI 32.5
== END 2025-06-15 14:22 | disposition home or self-care (01) ==
LOC: HO.HMCH 13:56
PROVIDERS: PCP Physician Assistant; Visit Provider Nurse Practitioner Family
DX: Z90.49 Acquired absence of other specified parts of digestive tract (principal)

== ENCOUNTER 2025-06-21 09:01 | Outpatient (AMB) | payer OTHER, SELFPAY ==
--- NOTE | 2025-06-21 09:06 | MHC.OFFVIS ---
Vital Signs 06/21/25 09:13 Height 5 ft 7 in Weight 210 lb BMI 32.9 BP 136/92 H Blood Pressure Location Lt brachial Position Sitting Pulse 80 Intake Visit Reasons: s/p appy Intake Note: Patient is seen in office for post op assessment post laparoscopic appendectomy. Pt c/o: admits to sore, bruise and tender, denies redness, discharge, or other concerns surgery:06/07/25 () Senior Examiner Required: No Accompanied by: Self / Same As Patient Allergies No Known Allergies Allergy (Verified 06/21/25 09:13) HPI Comments Details: Rolan Chakraborty is a 45 year old male who is here for follow up after undergoing laparoscopic appendectomy on 06/06/[address] Bolanos for acute appendicitis. He had an uncomplicated recovery course and was discharged to home the following day. He reports taking oxycodone for the first 3 days at home and has just been taking ibuprofen as needed as he has started to become more active throughout the day. He is eating ok and moving his bowels normally. He has no concerns. He is asking about returning to work. He denies fevers, chills, nausea, vomiting, diarrhea. [facility] Medical History (Updated 06/15/25 @ 00:00 by Laci Nelson) Herpes simplex Overweight GERD (gastroesophageal reflux disease) Surgical History (Updated 06/15/25 @ 14:09 by KURT Goodwin) History of appendectomy Family History Father COPD (chronic obstructive pulmonary disease) HTN (hypertension) Mother Cancer Diabetes Breast cancer, Onset Age: 51 Social History (Updated 06/15/25 @ 14:10 by KURT Goodwin) Housing: House Do you presently have visiting nurse or other home services: No Alcohol intake: current Alcohol intake frequency: a few times a week Alcohol type: beer Comment: counts correct Patient Tobacco Use Status: Never used Tobacco Tobacco use type: Cigarette e-Cigarette/Vaping Use: Never Used Second Hand Smoke Exposure: No Substance Use Type: Marijuana service: No Current occupational status: employed Current occupation: [employer] Cognitive needs: No Hearing needs: No Vision needs: Yes (Glasses) Review of Systems Const All systems reviewed & are unremarkable except as noted in HPI and below Physical Exam Const General: comfortable, no acute distress and alert Orientation/consciousness: patient oriented x3 Resp Effort & Inspection: normal respiratory effort, able to speak in complete sentences and not tachypneic GI Other: mildly protuberant abdomen soft, nondistended incision sites are well approximated and well healed, mild ecchymosis surrounding left lateral incision, no erythema mildly tender Palpation (GI): no guarding Skin General skin exam: no rashes or lesions noted Neuro General: patient oriented x3 and moves all extremities Results Reviewed Results Reviewed: Appendix, appendectomy: Acute appendicitis, extending to the proximal margin Assessment & Plan Assessment & Plan (1) S/P laparoscopic appendectomy: Code(s): Z90.49 - Acquired absence of other specified parts of digestive tract Category: Surgical Plan 45 year old male s/p laparoscopic appendectomy on 06/06/25 for acute appendicitis. He tolerated the procedure well. He has been doing well at home and has no concerns. His abdomen is benign with well healed and clean incisions without evidence of infection. 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 He was instructed on continuing heavy lifting and strenuous activity restrictions for another week. He understands and agrees with the plan. He can follow up as needed if he develops concerns. Coding Level of Care Code Global (13666) Diagnoses S/P laparoscopic appendectomy Z90.49
[2025-06-21 09:13] VITALS: BP 136/92; PULSE 80; BMI 32.9
--- OUTSIDE RECORDS SUMMARY | 2025-06-21 10:58 | XMS_ITS | Patient Health Record ---
Author Organization [facility] Address [address] [place] [address] Care Team Providers Care Mat Linker Name Role Phone Rebeca (RETIRED) Chidi MARTINEZ Primary Care Provide r Unavailable Elgin Jimenez Unavailable [phone] Reason For Referral No Information Medications Medication SIG (Take, Route, Frequency, Duration) Notes Start Date End Date Status Multivitamin Adult - Tablet Orally Active ibuprofen prn Active Omeprazole since 2013 Active Social History Social History Additional Details Category Social Info Options Details Miscellaneous: Marital status: Occupation: systems engineering manager at [email or web address] Caffeine: 1-2 cups per day Section Notes: Nonsmoker; 3-4 beers a few t imes a week Problems Problem Type SNOMED Code ICD Code Onset Dates Problem Status W/U Status Risk Notes Problem Gastroesophageal reflux disease (775866923) Gastroesophageal reflux disease, esophagitis presence not specified (K21.9) Active confirmed Plan Of Treatment Future Test Test Name Order Date UPPER GI ENDOSCOPY 11/12/2016 Insurance Providers Payer Name Payer Address Payer Phone Subscriber Number Group Number Insured Name Patient Relationship to Insured Coverage Start Date Coverage End Date R [address] [address] [place] [address] [id number] JENNA ESPINOZA Self - patient is the insured Medical (General) History Medical History History ICD Code Denies [place],DM,CVA,Lung disease,renal dise ase GERD
== END 2025-06-21 09:18 | disposition home or self-care (01) ==
LOC: HO.HGS 09:01
PROVIDERS: PCP Physician Assistant; Visit Provider Physician Assistant Surgical
DX: Z90.49 Acquired absence of other specified parts of digestive tract (principal)
CPT/HCPCS: 99024

== ENCOUNTER 2025-07-09 09:24 | Outpatient (AMB) | payer OTHER, SELFPAY ==
[2025-07-09 09:43] VITALS: BP 144/96; PULSE 90; TEMP 36.3; O2SAT 98; BMI 33.1
--- NOTE | 2025-07-09 09:43 | A.OFFPC_ITS ---
Vital Signs 07/09/25 09:43 07/09/25 10:14 Height 5 ft 7 in Weight 211 lb 8 oz BMI 33.1 BP 144/96 H 148/96 H Blood Pressure Location Lt brachial Position Sitting Pulse 90 Pulse Source Pulse Oximeter Temp 97.3 F Temp Source Temporal Artery Scan Pulse Oximetry (%) 98 Oxygen Delivery Method Room Air Intake Visit Reasons: annual exam Allergies No Known Allergies Allergy (Verified 07/09/25 09:56) Medication List - Last Reconciled 07/09/25 by Asher Chacon PA-C alprazolam 0.5 mg PO DAILY PRN 2 days blood pressure test kit-large As directed bupropion HCl XL (Wellbutrin XL) 300 mg PO DAILY docusate sodium (Colace) 100 mg PO BID PRN ibuprofen 800 mg PO Q8H 90 days omeprazole 20 mg PO DAILY@0630 valacyclovir (Valtrex) 1,000 mg PO DAILY PRN Tobacco use date assessed: 07/09/25 Dental Screening Dental Screen Date: 07/09/25 Did you have a dental visit in the last 12 months?: Yes Did you have a dental problem in the last 6 months where you did not have access to dental care?: No Was dental information given to patient?: Patient has dentist HPI annual exam HPI Details Patient is a 45-year-old male here today for routine annual physical. Patient has a past medical history significant for generalized anxiety disorder, obesity,, GERD. Concern--> she recently admitted to [facility] for acute appendicitis in his status post laparoscopic appendectomy. .. Hypertension: The patient's blood pressure was elevated today at 144/96 mmHg. He admits to feeling nervous about doctor visits when he is not sick, and does not check his blood pressure at home. He has a history of elevated cholesterol, but no recent fasting labs are on file. His weight has increased to 211 lbs from 207-208 lbs last year .. Anxiety: Anxiety seems to be well controlled on current med regime. Continues to follow with psychiatrist who manages his mental health medication .. .. Hyperlipidemia: Patient's most recent lipid panel showing elevated total cholesterol. Recheck lipid panel if LDL above 190 will consider statin therapy .. .. Class 1 Obesity:? Has gained weight since last office visit. Patient does understand his BMI is over 30 and will work on better eating habits and being more physically active to reduce his weight VAccine: UTD with Maderna Vaccine?, up-to-date with tetanus. , UTD with Flu vaccine [facility] Medical History Herpes simplex Overweight GERD (gastroesophageal reflux disease) Surgical History History of appendectomy Family History Father COPD (chronic obstructive pulmonary disease) HTN (hypertension) Mother Cancer Diabetes Breast cancer, Onset Age: 51 Social History (Updated 07/09/25 @ 10:01 by Asher Chacon PA-C) Housing: House Do you presently have visiting nurse or other home services: No Alcohol intake: current Alcohol intake frequency: a few times a week Alcohol type: beer Comment: counts correct Patient Tobacco Use Status: Never used Tobacco Tobacco use type: Cigarette e-Cigarette/Vaping Use: Never Used Second Hand Smoke Exposure: No Substance Use Type: Marijuana service: No Current occupational status: employed Current occupation: [employer] Cognitive needs: No Hearing needs: No Vision needs: Yes (Glasses) Questionnaire PHQ-9 Over the last 2 weeks, how often have you been bothered by any of the following problems? 1. Little interest or pleasure in doing things: not at all 2. Feeling down, depressed, or hopeless: not at all 3. Trouble falling or staying asleep, or sleeping too much: several days 4. Feeling tired or having little energy: several days 5. Poor appetite or overeating: not at all 6. Feeling bad about yourself - or that you are a failure or have let yourself or your family down: not at all 7. Trouble concentrating on things, such as reading the newspaper or watching television: not at all 8. Moving or speaking so slowly that other people could have noticed. Or the opposite - being so fidgety or restless that you have been moving around a lot more than usual: not at all 9. Thoughts that you would be better off or of hurting yourself in some way: not at all Total score: 2 Depression Screening Interpretation: Negative Depression Screening Done: Yes 28947 - PHQ-9 Billing: Patient declined-do not bill Source: Developed by Drs. Elgin Orlando, Binta Peng, Moise Bustamante and colleagues, with an educational luigi from [employer]. Thrive Questionnaire Date Thrive assessed: 07/06/25 I am a: Patient What is your living situation today?: I have a steady place to live Within the past 12 months, did the food you bought not last and you didn't have the money to get more?: Never true Within the past 12 months, did you worry whether your food would run out before you got money to buy more?: Never true Do you have trouble paying for medicines?: No Do you have trouble getting transportation to medical appointments?: No Do you have trouble paying your heating and electricity bill?: No Do you have trouble taking care of your child, family member or friend?: No Do you have trouble with day-to-day activities such as bathing, preparing meals, shopping, managing finances, etc.?: No Are you currently unemployed and looking for a job?: No Are you interested in more education?: Yes Please select the resources that you would like help with: None Currently or been in a relationship where the following occur: No concerns reported THRIVE Score: 0 AUDIT C Alcohol Use Questionnaire (AUDIT-C) 1. How often do you have a drink containing alcohol?: 2-3 times a week 2. How many drinks containing alcohol do you have on a typical day when you are drinking?: 1 or 2 3. How often do you have six or more drinks on one occasion?: Never Total Score: 3 TING-7 AMB Questionnaire TING-7 Date TING - 7 assessed: 06/15/25 Feeling nervous, anxious, or on edge: 0 = Not at all Not being able to stop or control worryin = Not at all Worrying too much about different things: 0 = Not at all Trouble relaxin = Several days Being so restless that it is hard to sit still: 0 = Not at all Becoming easily annoyed or irritable: 0 = Not at all Feeling afraid as if something awful might happen: 0 = Not at all Total TING-7 score (0-4 normal; 5-9 mild; 10-14 moderate; 15-21 severe): 1 Source: Developed by Drs. Elgin Orlando, Binta Peng, Moise Bustamante and colleagues, with an educational luigi from [employer] TING-7 Assessment Billing TING-7 Assessment Tool: TING-7 Assessment 59427 Review of Systems Const Denies body aches, Denies chills, Denies excessive sweating, Denies fatigue, Denies fever(s) and Denies headache(s) Eyes Denies blurry vision ENT Denies dysphagia, Denies vertigo, Denies dizziness, Denies headache(s), Denies hearing loss and Denies tinnitus Card Denies chest pain, Denies chest pain with activity, Denies syncope, Denies irregular heart rhythm and Denies dyspnea Resp Denies chest congestion, Denies cough, Denies hemoptysis, Denies dyspnea and Denies wheezing GI Denies abdominal pain, Denies melena, Denies hematochezia, Denies coffee ground emesis, Denies dysphagia, Denies diarrhea, Denies nausea and Denies vomiting Denies difficulty urinating, Denies dysuria, Denies urinary frequency, Denies urinary hesitancy and Denies urinary urgency Musc Denies arthralgias, Denies limited range of motion, Denies muscle cramps and Denies muscle weakness Skin/Breast Denies rash and Denies skin ulcer Neuro Denies Abnormal speech present, Denies confusion, Denies vertigo, Denies dizziness, Denies syncope, Denies headache(s), Denies memory loss and Denies seizure-like activity Psych Denies anxiety, Denies confusion, Denies depression, Denies memory loss, Denies panic attacks and Denies paranoia Endo Denies excessive sweating, Denies fatigue, Denies flushing, Denies polydipsia and Denies polyuria Aller/Immun Denies wheezing Physical exam (Primary Care) Vital Signs: Last Vital Signs Temp 97.3 F 07/09/25 09:43 Pulse 90 07/09/25 09:43 BP 148/96 H 07/09/25 10:14 Pulse Ox 98 07/09/25 09:43 Oxygen Delivery Method Room Air 07/09/25 09:43 BMI result Body Mass Index 33.1 BMI Assessment/Plan discussion: High BMI High, discussed plan: lifestyle, weight reduction, dietary and physical activity Tobacco/Smoking Status: Tobacco use Status Tobacco use date assessed 07/09/25 07/09/25 09:50 Patient Tobacco Use Status Never used Tobacco 07/09/25 10:01 Tobacco use type Cigarette 07/09/25 10:01 e-Cigarette/Vaping Use Never Used 07/09/25 10:01 PHQ-9: PHQ-9 Score PHQ-9: Total score 2 07/09/25 11:23 Depression Screening Interpretation: Negative Thrive Assessment: Date of Thrive Assessment Date Thrive assessed 07/06/25 07/09/25 09:50 Currently or been in a relationship where the following occur: No concerns reported Const General: cooperative, comfortable, no acute distress, alert and awake; No confusion Orientation/consciousness: oriented to person, oriented to place, patient oriented x3 and No confusion HENMT Head: Yes normocephalic Ears: external ears normal and TM's normal bilaterally Face and sinus: No sinus tenderness Mouth: Normal oral and palatal mucosa present and tongue normal Teeth and gingiva: dentition normal and gingiva normal Throat: Yes posterior oropharynx normal, Yes tonsils normal and Yes uvula midline Eyes Conjunctivae: conjunctivae normal Sclerae: sclerae normal Pupils: Equal, round and reactive pupils present EOM: EOMs intact bilaterally Direct Ophthalmoscopy: No no photophobia Neck Neck: Yes no lymphadenopathy, No tender and Yes no JVD Thyroid: Thyroid normal Carotids: no bruits Chest Chest palpation & inspection: no tenderness Resp Effort & Inspection: normal respiratory effort, no audible wheezes, not labored and no stridor Auscultation: no crackles, no rales, no rhonchi and no wheezes Cardio Jugular venous distension: no JVD Rate: regular rate, not bradycardic and not tachycardic Rhythm: regular rhythm Bruits: no carotid bruits Peripheral pulses: Peripheral pulses 2+ throughout GI Inspection: Yes normal to inspection, No abdominal wall ecchymosis and No visible herniation Palpation (GI): Soft to palpation, nontender, no guarding, not rigid and No hepatosplenomegaly present Auscultation: normoactive bowel sounds General: Yes no CVA tenderness Back/Spine/Pelvis Back: no CVA tenderness and No back tenderness Cervical Spine: cervical ROM normal Thoracic/Lumbar Spine: thoracic and lumbar spine normal to inspection, straight leg raise negative bilaterally, No thoraco-lumbar ROM limited and No lumbar spinal tenderness Skin Lesions: no lesions Rashes: no rashes Wounds: no wounds Neuro General: oriented to person, oriented to place, patient oriented x3, CN's II-XI intact bilaterally and No confusion Cranial nerves: Yes Equal, round and reactive pupils present and Yes Normal accommodation reflex present Cognition (Neuro): normal cognition Speech: No Abnormal speech present Gait exam (Neuro): Normal gait present Motor exam (neuro): 5/5 motor strength present throughout Extrem Right upper extremity: full ROM; no cyanosis Left upper extremity: full ROM; no cyanosis Right lower extremity: no edema Left lower extremity: no edema Psych Appearance: grossly normal Mental Status: mental status grossly normal Affect: normal affect Attitude: cooperative Thought process: Normal thought process present Office Procedures Flu Questionnaire Does the patient have a severe egg allergy?: No Does the patient have severe life threatening allergies?: No Does the patient have a fever or illness today?: No Has the patient ever had Guillain-[place] Syndrome?: No Has the patient ever had any past reaction to a flu shot?: No Immunizations Fluarix [id number] (PF) 45 mcg (15 mcg x 3)/0.5 mL IM syringe Performing Provider: Asher Chacon PA-C [place] [facility] [place] [facility] [place] [facility] Administered by: Suzanne Witt CMA on 07/09/25 09:51 Dose Route Admin Location Dispensed Lot Number Expiration Date [facility] Director Of Audiology 0.5 mL IM Left Deltoid 0.5 mL [id number] 01/29/26 15297-562-09 [employer] in My Handbag[employer] VIS Given Date VIS Provided VIS Publication Date 07/09/25 Single Vaccine 24 Eligibility Eligibility Date Funding Source Not [facility] Eligible 07/09/25 Private Coding Level of Care Code Est Pt Prev Care 40-64y(62727) Diagnoses Annual physical exam Z00.00 Primary hypertension I10 Hypertension type: primary hypertension Mixed hyperlipidemia E78.2 Hyperlipidemia type: mixed hyperlipidemia Class 1 obesity E66.811 S/P laparoscopic appendectomy Z90.49 TING (generalized anxiety disorder) F41.1 Additional Codes TING-7 Assessment Billing - TING-7 Assessment Tool: TING-7 Assessment 27340 ([id number]) Assessment & Plan Assessment & Plan (1) Annual physical exam: Code(s): Z00.00 - Encounter for general adult medical examination without abnormal findings Category: Medical Plan: as per HPI (2) HTN (hypertension): Code(s): I10 - Essential (primary) hypertension Category: Medical Qualifiers: Hypertension type: primary hypertension Qualified Code(s): I10 - Essential (primary) hypertension Plan: Regarding the patient's elevated blood pressure, the possibility of white coat hypertension was discussed, given his self-reported anxiety in medical settings. He was advised to monitor his blood pressure at home for a few weeks before considering antihypertensive medication. A prescription for a blood pressure cuff will be provided. Lifestyle modifications, including weight loss, reducing sodium and caffeine intake, and regular exercise, were recommended to help lower his blood pressure. Goal blood pressure is to be below 140/90 (3) HLD (hyperlipidemia): Code(s): E78.5 - Hyperlipidemia, unspecified Category: Medical Qualifiers: Hyperlipidemia type: mixed hyperlipidemia Qualified Code(s): E78.2 - Mixed hyperlipidemia Plan: Patient has a history of elevated total cholesterol and LDL. Will recheck fasting lipid panel and if LDL above 190 will consider starting statin therapy. (4) Class 1 obesity: Code(s): E66.811 - Obesity, class 1 Category: Medical Plan: Patient does understand his BMI is over 30 and will work on being more physically active and adapt to better eating habits to reduce his weight. (5) S/P laparoscopic appendectomy: Code(s): Z90.49 - Acquired absence of other specified parts of digestive tract Category: Surgical Plan: Patient doing well status post laparoscopic appendectomy. You still have some soreness around the area of his umbilical incision though otherwise no noted discharge, erythema ect.. . (6) TING (generalized anxiety disorder): Code(s): F41.1 - Generalized anxiety disorder Category: Medical Plan: Patient's TING-7 score positive for mild anxiety which has been existing condition for him. He does speak with a mental health med provider who manages his mental health medication Orders: Orders Lipid Panel Today E78.2 - Mixed hyperlipidemia Influenza [id number] Immunization Today Z23 - Encounter for immunization Microalbumin, Random (w Creat) Today I10 - Essential (primary) hypertension Comprehensive [place]. Panel Fast Today I10 - Essential (primary) hypertension Complete Blood Count no Diff Today I10 - Essential (primary) hypertension Medications: New blood pressure monitor As directed 1 ea 0RF I10 - Essential (primary) hypertension
[2025-07-09 10:14] VITALS: BP 148/96
== END 2025-07-09 10:16 | disposition home or self-care (01) ==
LOC: HO.HMCH 09:25
PROVIDERS: PCP Physician Assistant; Visit Provider Physician Assistant
DX: Z00.00 Encounter for general adult medical examination without abnormal findings (principal); I10 Essential (primary) hypertension; E66.811 Obesity, class 1; Z68.33 Body mass index [BMI] 33.0-33.9, adult; E78.2 Mixed hyperlipidemia; Z90.49 Acquired absence of other specified parts of digestive tract; F41.1 Generalized anxiety disorder; Z23 Encounter for immunization

== ENCOUNTER → 2025-07-09 09:24 | Outpatient (BNVA) | payer OTHER, SELFPAY | PROVIDERS: PCP Physician Assistant; Visit Provider Physician Assistant | DX: Z00.00 Encounter for general adult medical examination without abnormal findings (principal); Z23 Encounter for immunization; I10 Essential (primary) hypertension; E78.2 Mixed hyperlipidemia; E66.811 Obesity, class 1; F41.1 Generalized anxiety disorder; Z90.49 Acquired absence of other specified parts of digestive tract; Z68.33 Body mass index [BMI] 33.0-33.9, adult | CPT/HCPCS: 90471; 90656; 96127 ==